=== PATIENT | female | born 1935 | race Caucasian/White ===

== ENCOUNTER 2016-09-15 09:48 | Inpatient (IN) | payer OTHER ==
[~2016-09-15] VITALS: Ht 160 cm; Wt 49.0 kg
[2016-09-15 10:07] VITALS: BP 150/70
[2016-09-15 10:19] LABS: BASO % 0.2 % (0.0-1.0); EOS % 0.2 % (1.0-4.0); HEMATOCRIT 33.1 % (37.0-47.0); HEMOGLOBIN 11.2 g/dl (12.0-16.0); LYMPH # 0.7 10*3/uL (1.3-4.4); LYMPH % 8.8 % (27.0-41.0); MEAN CELL VOLUME 94.3 fl (81.0-99.0); MEAN CORPUSCULAR HGB 31.9 pg (27.0-31.0); MEAN CORPUSCULAR HGB CONC 33.8 g/dl (33.0-37.0); MEAN PLATELET VOLUME 9.3 fl (9.6-12.3); MONO # 0.5 10*3/uL (0.1-1.0); MONO % 6.5 % (3.0-9.0); NEUT # 6.9 10*3/uL (2.3-7.9); NEUT % 83.9 % (47.0-73.0); PLATELET COUNT AUTOMATED 168 10*3/uL (130-400); RED BLOOD COUNT 3.51 10*6/uL (4.10-5.10); RED CELL DISTRI WIDTH 12.9 % (0-14.5); WHITE BLOOD COUNT 8.3 10*3/uL (4.8-10.8)
[2016-09-15] MEDS ORDERED: ASPIRIN CHILDRE81 MG PO (10:21)
[2016-09-15] MEDS ORDERED: VITAMINS A-D-E1 EACH PO (10:21)
[2016-09-15 10:37] LABS: ALBUMIN 2.8 gm/dl (3.1-4.5); ALKALINE PHOSPHATASE 113 U/L (45-117); BILIRUBIN, TOTAL 0.4 mg/dl (0.2-1.0); BUN 37 mg/dl (7-24); CARBON DIOXIDE 25 mmol/L (21-32); CHLORIDE 101 mmol/L (98-107); EST GLOM FILT AFRICAN AMERICAN 46 ml/min; GLUCOSE 148 mg/dL (65-99); POTASSIUM 3.3 mmol/L (3.5-5.1); SGOT/AST 58 IU/L (3-35); SGPT/ALT 51 U/L (12-78); SODIUM 134 mmol/L (136-145); TROPONIN I < 0.015 ng/ml (<0.045)
[2016-09-15 11:00] VITALS: BP 152/70
[2016-09-15 11:00] LABS: BILIRUBIN 2+ (NEGATIVE); BLOOD 3+ (NEGATIVE); CLARITY SL CLOUDY (CLEAR); COLOR YELLOW (YELLOW); GLUCOSE NEGATIVE (NEGATIVE); KETONE 1+ (NEGATIVE); LEUKO ESTERASE 3+ (NEGATIVE); NITRITE NEGATIVE (NEGATIVE); PH 5.5 (5.0-9.0); PROTEIN 2+ (NEGATIVE); SPECIFIC GRAVITY 1.025 (1.005-1.030)
[2016-09-15 11:14] LABS: BACTERIA 2+; MUCOUS 1+; URINE REFLEX COMMENT YES (NO); WBC 31-40 wbc/hpf (0-5)
[2016-09-15 11:46] VITALS: BP 163/70
[2016-09-15 12:00] VITALS: BP 162/78
[2016-09-15 12:17] LABS: CKMB 1.7 ng/ml (0.5-3.6)
[2016-09-15 16:00] VITALS: BP 114/79
[2016-09-15 20:00] VITALS: BP 133/95
[2016-09-16] VITALS: BP 112/57
[2016-09-16 00:39] LABS: CKMB 2.4 ng/ml (0.5-3.6)
[2016-09-16 06:01] LABS: BASO % 0.3 % (0.0-1.0); EOS % 0.2 % (1.0-4.0); HEMATOCRIT 27.7 % (37.0-47.0); HEMOGLOBIN 9.3 g/dl (12.0-16.0); IG # 0.1 10*3/uL (0.0-0.1); LYMPH # 1.6 10*3/uL (1.3-4.4); LYMPH % 14.4 % (27.0-41.0); MEAN CELL VOLUME 93.6 fl (81.0-99.0); MEAN CORPUSCULAR HGB 31.4 pg (27.0-31.0); MEAN CORPUSCULAR HGB CONC 33.6 g/dl (33.0-37.0); MEAN PLATELET VOLUME 9.5 fl (9.6-12.3); MONO # 0.4 10*3/uL (0.1-1.0); MONO % 3.6 % (3.0-9.0); NEUT # 9.1 10*3/uL (2.3-7.9); PLATELET COUNT AUTOMATED 159 10*3/uL (130-400); RED BLOOD COUNT 2.96 10*6/uL (4.10-5.10); RED CELL DISTRI WIDTH 13.1 % (0-14.5); WHITE BLOOD COUNT 11.2 10*3/uL (4.8-10.8)
[2016-09-16 06:30] LABS: CARBON DIOXIDE 24 mmol/L (21-32); CHLORIDE 112 mmol/L (98-107); EST GLOM FILT AFRICAN AMERICAN > 60 ml/min; FREE T4 1.25 ng/dl (0.76-1.46); GLUCOSE 103 mg/dL (65-99); MAGNESIUM 1.8 mg/dL (1.5-2.1); PHOSPHOROUS 2.4 mg/dL (2.5-4.9); SODIUM 145 mmol/L (136-145)
[2016-09-16 06:34] LABS: PROTHROMBIN TIME 10.4 SECONDS (9.0-12.4)
[2016-09-16 06:41] LABS: BUN 22 mg/dl (7-24)
[2016-09-16 06:56] LABS: HEMOGLOBIN A1c 5.6 % (4.8-5.6)
[2016-09-16 07:59] LABS: VITAMIN D, 25-HYDROXY 30.8 ng/mL (30-100)
[2016-09-16 08:00] VITALS: BP 122/53
[2016-09-16 08:02] LABS: FOLIC ACID > 24.00 ng/mL (>5.38)
== END 2016-09-16 14:32 | disposition home or self-care (01) | DRG 682 ==
LOC: ED 09:48 → EDHOLD 11:23 → 5E 11:36
PROVIDERS: Internal Medicine; Nurse Practitioner Family
DX: N17.0 Acute kidney failure with tubular necrosis (principal); E43 Unspecified severe protein-calorie malnutrition; N39.0 Urinary tract infection, site not specified; D64.9 Anemia, unspecified; E87.1 Hypo-osmolality and hyponatremia; Z68.1 Body mass index [BMI] 19.9 or less, adult; N18.3 Chronic kidney disease, stage 3 (moderate); R31.9 Hematuria, unspecified; Z83.3 Family history of diabetes mellitus; E87.6 Hypokalemia; R74.0 Nonspecific elevation of levels of transaminase and lactic acid dehydrogenase [LDH]

== ENCOUNTER → 2016-09-25 | Outpatient (CLI) | payer MEDICARE ==
[~2016-09-25] MED LIST: ASPIRIN CHILDRE81 MG PO; VITAMINS A-D-E1 EACH PO
[2016-09-25 07:24] LABS: BILIRUBIN NEGATIVE (NEGATIVE); BLOOD 2+ (NEGATIVE); CLARITY SL CLOUDY (CLEAR); COLOR YELLOW (YELLOW); GLUCOSE NEGATIVE (NEGATIVE); KETONE NEGATIVE (NEGATIVE); LEUKO ESTERASE 2+ (NEGATIVE); NITRITE NEGATIVE (NEGATIVE); PROTEIN NEGATIVE (NEGATIVE); UROBILINOGEN 0.2 E.U./dl (0.2-1.0)
[2016-09-25 07:33] LABS: BACTERIA 1+
[2016-09-25 07:51] LABS: ALBUMIN 3.4 gm/dl (3.1-4.5); BILIRUBIN, TOTAL 0.4 mg/dl (0.2-1.0); TOTAL PROTEIN 7.9 gm/dL (6.4-8.2)
[2016-09-26 05:08] LABS: HEPATITIS C VIRUS ANTIBODY <0.1 s/co (0.0-0.9)
== END | disposition home or self-care (01) ==
LOC: US 06:00 → LAB 06:01
PROVIDERS: Internal Medicine
DX: N18.3 Chronic kidney disease, stage 3 (moderate) (principal); R74.0 Nonspecific elevation of levels of transaminase and lactic acid dehydrogenase [LDH]; D64.9 Anemia, unspecified; R79.89 Other specified abnormal findings of blood chemistry; K76.89 Other specified diseases of liver; N94.89 Other specified conditions associated with female genital organs and menstrual cycle; J42 Unspecified chronic bronchitis

== ENCOUNTER → 2016-09-26 | Outpatient (CLI) | payer MEDICARE ==
[2016-09-26 11:48] LABS: URINE TOTAL PROTEIN CONC 6.6 mg/dL (<11.9)
[2016-09-26 11:49] LABS: URINE CREATININE TIMED 556.6 mg/24HRS (600-1800); URINE SODIUM TIMED 80.5 mmol/24H (40.0-220)
== END | disposition home or self-care (01) ==
LOC: LAB 11:06
PROVIDERS: Internal Medicine
DX: N18.3 Chronic kidney disease, stage 3 (moderate) (principal); R74.0 Nonspecific elevation of levels of transaminase and lactic acid dehydrogenase [LDH]; D63.1 Anemia in chronic kidney disease

== ENCOUNTER → 2016-10-10 | Outpatient (CLI) | payer MEDICARE | LOC: US 13:44 | DX: R31.29 Other microscopic hematuria (principal) ==

== ENCOUNTER 2017-01-05 08:43 | Inpatient (IN) | payer MEDICARE ==
[~2017-01-05] VITALS: Ht 160 cm; Wt 50.0 kg
--- NOTE | ~2017-01-05 | PR ---
[place], [place] PROGRESS NOTE NAME: HUBERT SANTILLAN [facility] #: [id number] UNIT #: [id number] ROOM: [facility] DOCTOR: MARYAM CEVALLOS MD BIRTHDATE: [birth year] DOS: 01/08/2017 SUBJECTIVE: The patient was seen at her bedside in the intensive care unit today, 01/08/2017, for followup of her newly documented atrial fibrillation. She is an 81-year-old woman who lives with her at home. She is a poor historian and may have some dementia. She came in to the hospital on 01/05/2017 with a chief complaint of increasing weakness, fatigue and confusion. In the Emergency Room, she was in sinus rhythm, but developed atrial fibrillation with a rapid ventricular response on 01/07/2017. She was transferred to the intensive care unit, placed on a diltiazem drip and converted spontaneously back to sinus rhythm the same day. We were asked to comment on her management and evaluation. Currently, the patient is very comfortable. She denies dyspnea or palpitations. She does not recall having her heart out of rhythm. PAST HISTORY: Includes: 1. Hypertension. 2. Chronic kidney disease. 3. Protein calorie malnutrition. PHYSICAL EXAMINATION: GENERAL: Today, she is an elderly white female who looks fatigued and frail. VITAL SIGNS: Pulse is 78 and regular, blood pressure is 131/54. She is afebrile. NECK: Supple. She has no jugular distention. Carotids are full. I heard no bruits. LUNGS: Respirations are unlabored. Her chest is clear to auscultation and percussion. She has no presacral edema. HEART: Has a regular rhythm. She has a fourth heart sound, but no third heart sound or murmur. The PMI is not displaced. ABDOMEN: Benign. EXTREMITIES: Showed no edema. There were no palpable cords or tenderness. Pedal pulses are palpable in the feet. Her monitor today does show sinus rhythm again. TSH is normal. Hemoglobin today is 11.4 with a white count of 7300. Sodium yesterday was 133 with a potassium of 3.2, BUN 23, creatinine 1.08, estimated GFR 48. IMPRESSION: 1. Newly documented atrial fibrillation, now back in sinus rhythm. 2. CHADS-VASc score of 4 indicating a high risk for stroke without anticoagulation. 3. Hypertension. 4. Malnutrition. 5. Possible dementia. [place], [place] PROGRESS NOTE NAME: HUBERT SANTILLAN [facility] #: [id number] UNIT #: [id number] ROOM: [facility] DOCTOR: MARYAM CEVALLOS MD BIRTHDATE: [birth year] PLAN: The patient is a very high risk for stroke and therefore, we will start her on Xarelto. We will stop her aspirin as we do this. We will monitor her CBC. Her potassium will be replaced. Further recommendations will depend upon her course in the hospital and echocardiogram results. I thank Dr. Weaver for asking our advice regarding her management of this patient. MARYAM CEVALLOS MD CM:PNTRANS [id number] MARYAM CEVALLOS MD 01/08/17 2248 interface
--- NOTE | ~2017-01-05 | PR ---
[place], [place] PROGRESS NOTE NAME: HUBERT SANTILLAN [facility] #: [id number] UNIT #: [id number] ROOM: [facility] DOCTOR: MARYAM CEVALLOS MD BIRTHDATE: [birth year] DOS: 01/09/2017 SUBJECTIVE: The patient was seen at her bedside in the intensive care unit today on 01/09/2017 for followup of her paroxysmal atrial fibrillation. When I saw her yesterday, she was in sinus rhythm, but has converted back to atrial fibrillation with a rapid ventricular response today. She denies that she feels any palpitations, lightheadedness or chest discomfort. She initially was admitted on 01/05/2017 with a chief complaint of increasing weakness, fatigue and confusion. In the emergency room, she was in sinus rhythm, but developed atrial fibrillation with a rapid ventricular response. On 01/07/2017, she converted spontaneously to sinus rhythm, but has now converted back to atrial fibrillation with rapid ventricular response. She does have a history of hypertension, chronic renal insufficiency and malnutrition. In addition, she appears to have an element of dementia. PHYSICAL EXAMINATION: GENERAL: She is an elderly white female who is awake and alert. VITAL SIGNS: Pulse is 130 and irregularly irregular, blood pressure is 165/77. She is afebrile. NECK: Supple. She has no jugular distention. Carotids are full. LUNGS: Respirations are unlabored. Her chest is clear. HEART: Has an irregularly irregular rhythm. She has no murmurs or gallops. ABDOMEN: Soft and normoactive. EXTREMITIES: Showed no edema. Echocardiogram was done on 01/08/2017 and showed normal left ventricular size, wall thickness, regional wall motion and systolic function with normal diastolic function for the patient's age. The aortic valve was sclerotic, but opened well with mild aortic insufficiency. IMPRESSION: 1. Newly documented atrial fibrillation, which appears to be paroxysmal. 2. CHADS-VASc score of 4 indicating high risk for stroke without anticoagulation. 3. Hypertension. 4. Malnutrition. 5. Probable dementia. PLAN: The patient is going quite fast now and therefore, we will start her back on IV diltiazem. If this continues to be a problem, we may consider starting either Multaq or amiodarone. Given her normal left ventricular function, sotalol may also be a reasonable option. I thank Dr. Weaver for asking our advice regarding her care. [place], [place] PROGRESS NOTE NAME: HUBERT SANTILLAN UNIT #: [id number] ROOM: [facility] DOCTOR: MARYAM CEVALLOS MD BIRTHDATE: [birth year] MARYAM CEVALLOS MD CM:PNTRANS [id number] MARYAM CEVALLOS MD 01/10/17 0324 interface
--- NOTE | ~2017-01-05 | CON ---
[place], [place] REPORT OF CONSULTATION NAME: HUBERT SANTILLAN UNIT #: [id number] ROOM: [facility] DOCTOR: VIRGINIE ROJAS BIRTHDATE: [birth year] DOS: 01/10/2017 HISTORY OF PRESENT ILLNESS: The patient is an 81-year-old female who is brought in for increased weakness, fatigue and confusion over the last couple of days. She was admitted to the hospital on 01/05/2017. The patient's stated that her appetite and food intake had decreased over the past few days and the family was worried she had a UTI despite urine cultures being negative. Met with the patient who was unable to identify where she was or the date or time. She thought she was in her first home and that there was a new TV in her home and asked who had bought it for her. She also thought the nurse was her relative, Minda. She was aware of herself, but was not oriented to any ____. This is reported as an acute change. She was unable to provide any history as she was unable to answer basic questions. PAST MEDICAL HISTORY: Chronic kidney disease stage 3, fatigue, hyperkalemia, hypernatremia, loss of appetite, normocytic anemia, protein-calorie malnutrition severe and transaminitis, UTI, acute kidney injury, dehydration, hyperkalemia, malnutrition. The patient was unable to provide much history other than her name again. She is not alert and oriented at this time. I spoke with Dr. Shepherd through nursing who is going to order a CT of the head. I will be interested to see the results of this as well as repeat urine cultures. DIAGNOSIS: Delirium, not otherwise specified. RECOMMENDATIONS: Continue to monitor the patient regarding mental status changes. Await the results of CT of the head along with the urine cultures as well as the patient reaction to medications being changed. The patient could possibly have medication-induced delirium versus hospital-acquired delirium. Thank you for the consult. KANG Peter CM:CONSTR:REPORT OF CONSULTATION 1356 01/11/17 0339 interface
--- NOTE | ~2017-01-05 | EKG ---
[place], [place] ELECTROCARDIOGRAM REPORT NAME: HUBERT SANTILLAN UNIT #: [id number] ROOM: [facility] DOCTOR: RAGHAV ESCALANTE MD BIRTHDATE: [birth year] DOS: 01/05/2017 TIME: 10:07:26. RATE AND RHYTHM: Normal sinus rhythm at 88 beats per minute. [place] interval 119 milliseconds, QRS duration 65 milliseconds. Corrected QT interval is 435 milliseconds, QRS axis is 4. IMPRESSION: 1. Sinus rhythm. 2. RSR in V1 and V2, probable normal variant. 3. Minimal ST elevation in anterior leads. IMPRESSION: This is borderline EKG. RAGHAV ESCALANTE MD CM:EKGRPT:ELECTROCARDIOGRAM REPORT [id number] 1003 RAGHAV ESCALANTE MD
--- NOTE | ~2017-01-05 | PR ---
[place], [place] PROGRESS NOTE NAME: HUBERT SANTILLAN UNIT #: [id number] ROOM: [facility] DOCTOR: HERMANN TALAVERA MD BIRTHDATE: [birth year] DOS: 01/13/2017 CARDIOLOGY FOLLOWUP VISIT NOTE REASON FOR VISIT: The patient has atrial fibrillation and hypertension. SUBJECTIVE: The patient is feeling better. Denies any chest pain, palpitation or dizziness. No PND, no orthopnea, no fever and chills. RHYTHM STRIPS: The patient is in sinus rhythm. REVIEW OF SYSTEMS: Review of 8 systems negative except as mentioned above. MEDICATIONS AND ALLERGIES: Reviewed. PHYSICAL EXAMINATION: VITAL SIGNS: Reviewed. GENERAL: The patient is alert, oriented, no acute distress. HEAD AND NECK: Pupils are round and equal. No jaundice. THROAT: Tongue was moist and pharynx was clear. NECK: Supple, no distended , no carotid bruit. CHEST: Symmetrical, nontender. LUNGS: A few scattered rhonchi, but good air entry bilaterally. HEART: Regular rhythm. No S3, no palpable thrills. ABDOMEN: Benign, nontender. Bowel sounds normal. SKIN: Warm and dry. No cyanosis, no clubbing. NEUROLOGIC: The patient is alert and oriented. No focal neurologic deficit. RECTAL: Deferred. GENITOURINARY: Deferred. IMPRESSION: 1. Paroxysmal atrial fibrillation. 2. Hypertension. RECOMMENDATIONS: 1. Continue current medication. 2. Today EKG pending at the time of my examination for her QT interval. 3. No further cardiac testing and the patient is DNRCC. 4. Discussed with her family who is at bedside. 5. Possible discharge on Sunday to a [facility]. [place], [place] PROGRESS NOTE NAME: HUBERT SANTILLAN UNIT #: [id number] ROOM: [facility] DOCTOR: HERMANN TALAVERA MD BIRTHDATE: [birth year] HERMANN TALAVERA MD CM:PNTRANS [id number] HERMANN TALAVERA MD 01/13/17 1682 interface
--- NOTE | ~2017-01-05 | PR ---
[place], [place] PROGRESS NOTE [facility] [id number] UNIT #: [id number] ROOM: 524 DOCTOR: SHRUTHI MARTINEZ MD BIRTHDATE: [birth year] DOS: SUBJECTIVE: The patient is feeling much better. She is conscious, alert and oriented. Her atrial fibrillation is under control. The patient is able to eat better. She is conscious, alert and oriented. She does not seem to have any dehydration at present. CBC showed white count 6,200, hemoglobin 11.7, hematocrit 33.8. Basic metabolic profile showed creatinine of 1.06, GFR 50, other values are fairly normal. OBJECTIVE: VITAL SIGNS: Her blood pressure is 147/73, pulse is 88, respirations 16, temperature 97.9. CHEST: Clear. HEART: Irregular. ABDOMEN: Soft. [facility] SHRUTHI MARTINEZ MD CM:PNTRANS [id number] SHRUTHI MARTINEZ MD 01/14/17 2316 interface
--- NOTE | ~2017-01-05 | PR ---
[place], [place] PROGRESS NOTE NAME: HUBERT SANTILLAN UNIT #: [id number] ROOM: [facility] DOCTOR: HERMANN TALAVERA MD BIRTHDATE: [birth year] DOS: 01/14/2017 REASON FOR VISIT: Atrial fibrillation. SUBJECTIVE: The patient is resting comfortably. Denies any chest pain or shortness of breath. She is anticipating discharge. No fever, no chills. She is anticipating discharge after swallowing study. REVIEW OF SYSTEMS: Review of the 8 systems negative except as mentioned above. RHYTHM STRIPS: The patient in sinus rhythm. PHYSICAL EXAMINATION: VITAL SIGNS: Reviewed. GENERAL: Alert, comfortable, in no acute distress. HEENT: Pupils are round and equal. No jaundice. NECK: Supple, no distended neck veins, no carotid bruit. CHEST: Symmetrical, nontender. LUNGS: Clear to auscultation bilaterally. HEART: Regular rhythm, no S3, no palpable thrills. Grade 1/6 systolic murmur. ABDOMEN: Benign. Bowel sounds normal. EXTREMITIES: Showed no edema. Distal pulses are palpable. DIAGNOSTIC TESTS: Review of the diagnostic test, EKG from yesterday showed sinus rhythm with a QTc 496 milliseconds which is increased from 468 on 01/12. IMPRESSION: 1. Paroxysmal atrial fibrillation, sinus rhythm, decrease the sotalol dose to half due to her increased QT interval. 2. Hypertension, stable. 3. Dysphagia. The patient is waiting for swallowing study tomorrow. 4. Cardiology will see as needed and she can be discharged home after her swallowing study on Sunday. 5. There is no family at bedside at the time of my examination. [place], [place] PROGRESS NOTE NAME: HUBERT SANTILLAN UNIT #: [id number] ROOM: [facility] DOCTOR: HERMANN TALAVERA MD BIRTHDATE: [birth year] HERMANN TALAVERA MD CM:PNTRANS [id number] 1335 HERMANN TALAVERA MD 01/14/17 1333 interface
--- NOTE | ~2017-01-05 | CON ---
[place], [place] REPORT OF CONSULTATION NAME: HUBERT SANTILLAN UNIT #: [id number] ROOM: [facility] DOCTOR: CELSA UMANZOR MD BIRTHDATE: [birth year] DOS: REQUESTING PHYSICIAN: Dr. Tk Weaver REASON FOR CONSULTATION: Atrial fibrillation. ASSESSMENT: 1. Current presentation with shortness of breath and weakness. 2. Evidence of atrial fibrillation with significant rapid ventricular response, heart rates in the 180s. 3. The patient is a very poor historian. 4. Normal white count with left shift. 5. Hematuria. 6. Unknown level of lipid. 7. Very limited functional capacity. PLAN: 1. Cycle cardiac enzymes. 2. Check thyroid function test. 3. Sed rate, CRP along with D-dimer. 4. ABG. 5. Echocardiogram in a.m. 6. Cardizem drip. 7. Lopressor 25 mg q. 6 hours. 8. Digoxin 0.5 mg IV times once. 9. Lovenox 1 mg/kg subcutaneous once. 10. Blood cultures/UA. HISTORY AND PHYSICAL: The patient is a pleasant 81-year-old female, unknown to our practice, was referred by Dr. Weaver for evaluation of new onset atrial fibrillation that appears to be completely asymptomatic. The patient was brought into the hospital by her because of her weakness, shortness of breath that has going for the past 5 days. The patient is a very poor historian. She has been confused and quite forgetful. The patient does know that she had been short of breath though and tired, but denies any chest pain, chest pressure, heaviness or tightness. No jaw pain. No left arm pain. No back pain. Prior to this presentation, the patient denies any symptomatic palpitation or any associated dizziness, lightheadedness or near syncope. Decreased appetite has been reported. The patient appears to be almost cachectic. No reported fever, chills or night sweats. No cough. No dysuria. No PND, orthopnea or pedal edema. The patient has very limited functional capacity. She lives at home with her . PAST MEDICAL HISTORY: As detailed in my assessment. SOCIAL HISTORY: The patient denies any current tobacco, alcohol or illicit drug abuse. FAMILY HISTORY: Not applicable in view of patient's age. [place], [place] REPORT OF CONSULTATION NAME: HUBERT SANTILLAN UNIT #: [id number] ROOM: [facility] DOCTOR: CELSA UMANZOR MD BIRTHDATE: [birth year] CURRENT MEDICATIONS: Cardizem drip, lisinopril, hydrochlorothiazide, aspirin, Flexeril. ALLERGIES: The patient has no known drug allergies. REVIEW OF SYSTEMS: The patient currently denies any headache, diplopia or blurry vision. No fever. No chills. No night sweats. No abdominal pain. No bright red blood per rectum. No tarry stools. Admits to joint pain and muscular pain. No anxiety. No depression. No polyuria. No polydipsia. No skin rash. Review of all other systems has been negative. PHYSICAL EXAMINATION: GENERAL: The patient is alert, oriented x3, quite pleasant, sitting up in bed, in no apparent distress. VITAL SIGNS: Blood pressure 125/55, heart rate 172, respiratory rate of 20, temperature 98.2, T-max is 99.9.. HEENT: Extraocular muscles intact. Pupils equal, round, reactive to light. Conjunctivae, mild pallor. Throat, no petechiae. NECK: Good upstroke. Unable to appreciate any bruit. No lymphadenopathy. No thyromegaly. HEART: S1, S2 with holosystolic murmur at the left sternal border. No rub. No retrosternal heave. CHEST AND BACK: No deformities. LUNGS: Clear to auscultation. Slight decrease in air movement. No wheezing. No rales. ABDOMEN: Soft, nontender, present bowel sounds. No masses. No bruits. LOWER EXTREMITIES: There is no edema, with faint distal pulses. NEUROLOGIC: Grossly nonfocal. SKIN: No significant rash. DIAGNOSTIC DATA: Electrocardiogram showing atrial fibrillation with fast ventricular response, heart rate 172. There is poor R-wave progression, nonspecific ST changes. LABORATORY DATA: White count 7.3, hemoglobin 11.4, initially 13.2 (after 2 liters of saline), platelets 142,000, neutrophils 87%. Potassium 3.2, creatinine 1.08, GFR 48, BUN 23, albumin 2.5, protein 6.2. TSH 1.9, T4 1.6. CELSA UMANZOR MD CM:CONSTR:REPORT OF CONSULTATION 1159 01/07/17 1224 interface
--- NOTE | ~2017-01-05 | EKG ---
[place], [place] ELECTROCARDIOGRAM REPORT NAME: HUBERT SANTILLAN UNIT #: [id number] ROOM: [facility] DOCTOR: SADAF TY,HERMANN BIRTHDATE: [birth year] DOS: 01/14/2017 TIME: 9:49 a.m. IMPRESSION: 1. Sinus rhythm. 2. Normal RI interval. 3. Borderline prolonged QTC at 480 milliseconds. HERMANN TALAVERA MD CM:EKGRPT:ELECTROCARDIOGRAM REPORT 1025 1251 HERMANN TALAVERA MD
--- NOTE | ~2017-01-05 | CON ---
[place], [place] REPORT OF CONSULTATION NAME: HUBERT SANTILLAN UNIT #: [id number] ROOM: [facility] DOCTOR: OSCAR PAGE MD BIRTHDATE: [birth year] DOS: 01/12/2017 I have been asked for placement of PEG tube since she is not eating. She is having severe dementia. She cannot take her medication and the family is debating and deciding about proceeding with a PEG tube or not. LABORATORY DATA: Labs and records have been reviewed. Her serum ammonia level is less than 10. Electrolytes are balanced. Potassium of 3.3 has been addressed with potassium supplementation. CBC: H and H of 10 and 30, platelets of 285. Urine culture, no bacteria. PAST MEDICAL HISTORY: Anemia, protein calorie malnutrition, renal insufficiency, weight loss, hyperkalemia, dehydration. PAST SURGICAL HISTORY: Cholecystectomy. SOCIAL HISTORY: Nonsmoker, social alcohol consumer in the past. FAMILY HISTORY: Noncontributory. ALLERGIES: To no known medications. MEDICATIONS: Medication list has been reviewed. The patient has been on aspirin and Xarelto. REVIEW OF SYSTEMS: In general, cannot be obtained from her due to the cognitive incapability and advanced dementia. PHYSICAL EXAMINATION: GENERAL: Reveals a very frail patient, alert. HEENT: Head normocephalic, nontraumatic. MOUTH: Clear. No ____ ulceration. No thrush. NECK: Supple, no thyromegaly, no cervical lymphadenopathy. CHEST: Symmetric anatomy, equal expansion. No wheeze, no rhonchi. HEART: Normal sinus rhythm, no gallop, no murmur. ABDOMEN: Soft. No hepato-organomegaly. Bowel sounds present. No pulsatile mass. EXTREMITIES: No cyanosis, no pedal edema. NEUROLOGIC: Alert and disoriented. LABORATORY DATA: Reviewed. Records reviewed. PLAN AND DISCUSSION: I have spoken to the family member at the bedside; however, she defers the final decision for consent for PEG tube placement to her who is not available at this time. ____ has been established to see if and when they decided the patient to have a PEG tube. This is going to be organized on such a time. We are going to make sure that she is off the aspirin and Xarelto before we can proceed with PEG tube placement. Otherwise, if they decided to no PEG, I would advise at least to [place], [place] REPORT OF CONSULTATION NAME: HUBERT SANTILLAN UNIT #: [id number] ROOM: [facility] DOCTOR: OSCAR PAGE MD BIRTHDATE: [birth year] proceed with NG tube Dobbhoff tube placement to assure that we have access to the stomach. Other adjunctive diagnoses as outlined in the paragraph of past medical and surgical history. Workup and stabilization and IV hydration. OSCAR PAGE MD CM:CONSTR:REPORT OF CONSULTATION 1642 01/13/17 0714 interface
--- NOTE | ~2017-01-05 | CON ---
[place], [place] REPORT OF CONSULTATION NAME: HUBERT SANTILLAN UNIT #: [id number] ROOM: [facility] DOCTOR: MAXIMUS OLIVARES MD BIRTHDATE: [birth year] DOS: 01/12/2017 CHIEF COMPLAINT: "I think you have been at my neck of the bar[place] before, haven't you." HISTORY OF PRESENT ILLNESS: This is an 81-year-old white female who was admitted through the emergency room with increasing weakness, fatigue and confusion over the last several days prior to admission. The patient, per the who accompanied her, has not been eating or taking in fluids for some time now and the family is worried that she might have a UTI causing her to be increasingly confused. The patient now has been in ICU for several days. Staff here note that she is increasingly confused and she sundowns. She is experiencing both symptoms of depression with poor sleep and appetite, anergia, anhedonia, hopeless, helpless feelings as well as increased psychotic symptoms. The patient has repeatedly stated that she has seen aliens in her room and has been very grossly delusional. Much of this is worsened when she sundowns in the evening and becomes increasingly agitated. PAST MEDICAL HISTORY: Remarkable for dehydration, malnutrition, chronic kidney disease stage 3. MENTAL STATUS: The patient is alert and oriented to self only. She does not seem to realize she is in the hospital and she states that she has been here just overnight. Her responses tended to be short and simple, at times evasive. She does appear somewhat depressed rather flat. She was lying in bed, next to her was a full breakfast tray that was untouched. This morning, she was pleasant and cooperative and offered no delusional statements. Memory is very poor, especially for short term events. DIAGNOSIS: Major depression, recurrent with psychotic features. PLAN: I will go ahead and check a vitamin B12, vitamin D level and a serum ammonia to continue to rule out organic factors. I will stop her Megace only because she is bedridden at the time and I worry about the risk of DVT or PE. Instead, I will start her on Remeron which is an antidepressant that will stimulate appetite and also aid sleep hoping to also decrease some of her sundowning. I will also simultaneously start Exelon patch 4.6 mg in the morning to attempt to impact positively on ADLs, behavior and cognition. Should you require further intervention, please feel free to call me at any time. [place], [place] REPORT OF CONSULTATION NAME: HUBERT SANTILLAN Emily UNIT #: [id number] ROOM: [facility] DOCTOR: MAXIMUS OLIVARES MD BIRTHDATE: [birth year] MAXIMUS OLIVARES MD CM:CONSTR:REPORT OF CONSULTATION 0939 01/13/17 0450 interface
--- NOTE | ~2017-01-05 | EKG ---
[place], [place] ELECTROCARDIOGRAM REPORT NAME: HUBERT SANTILLAN UNIT #: [id number] ROOM: [facility] DOCTOR: SADAF TY,HERMANN BIRTHDATE: [birth year] DOS: 01/13/2017 TIME: 9:57 a.m. IMPRESSION: 1. Sinus rhythm. 2. Left ventricular hypertrophy. 3. Prolonged QT interval with QT 463, QTC 496 [address]. [address] elevation in the anterior leads. HERMANN TALAVERA MD CM:EKGRPT:ELECTROCARDIOGRAM REPORT [id number] HERMANN TALAVERA MD
--- NOTE | ~2017-01-05 | PR ---
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 The patient has been seen by Dr. Rincon, psychiatrist. He advised to check patient's B12 level, vitamin D level, serum ammonia and advised to stop her Megace, improve with dehydration. Her basic metabolic profile is fairly normal and her CBC showed some hypochromic anemia, otherwise normal. The patient has also been seen by Dr. Lowery and he has advised as the patient is not able to eat, she will need PEG placement and he has cleared her to be taken for PEG placement, which will be done possibly on Sunday. Her blood pressure is 166/89, pulse 78, respirations 20, temperature 97.8. The patient is still somewhat confused. SHRUTHI MARTINEZ MD CM:PNTRANS [id number] SHRUTHI MARTINEZ MD 01/15/17 1101 interface
--- NOTE | ~2017-01-05 | PR ---
[place], [place] PROGRESS NOTE NAME: HUBERT SANTILLAN [facility] #: [id number] UNIT #: [id number] ROOM: 420 DOCTOR: SHRUTHI MARTINEZ MD BIRTHDATE: [birth year] DOS: SUBJECTIVE: The patient has been admitted to the hospital with confused mental status and with hypertension, not able to eat much and was getting dehydration and slowly getting down and she came to Emergency Department a couple of days before, also was given IV fluids, felt better, but sent home, but then it looks like she has continued not getting better and came to Emergency Department again from where she was admitted to the hospital. The patient has a past history of chronic kidney disease, fatigue, hypokalemia, hyponatremia, loss of appetite, normocytic anemia, protein-calorie malnutrition, and UTI. Last night, the patient had become very confused and was not able to be controlled, needed medication to get under control, but now she is feeling much better. She is conscious, alert. CT of the abdomen did not show any acute problems. She had some cholelithiasis without any evidence of cholecystitis. She has also nonspecific colitis. LABORATORY DATA: Her basic metabolic profile today showed BUN 26, creatinine 1.05, GFR 50, calcium 8.2, phosphorus 1.8, and albumin 2.3. Other values are normal. Urine culture did not show any bacteria. OBJECTIVE: VITAL SIGNS: Blood pressure is 154/61, pulse 54, respirations 20, temperature 99.4. CHEST: Clear. HEART: Regular. ABDOMEN: Soft. No tenderness. SHRUTHI MARTINEZ MD CM:PNTRANS [id number] SHRUTHI MARTINEZ MD 01/07/17 0445 interface
--- NOTE | ~2017-01-05 | CON ---
[place], [place] REPORT OF CONSULTATION NAME: HUBERT SANTILLAN UNIT #: [id number] ROOM: [facility] DOCTOR: OSCAR PAGE MD BIRTHDATE: [birth year] DOS: HISTORY OF PRESENT ILLNESS: An 81-year-old patient who has presented with chief complaint of abdominal pain, initially; however, now concentrated that her left hip is bothering her. She was coincidentally found to have suspected choledocholithiasis and she is in ICU for atrial fibrillation and conversion of the above. I have been asked for assessment of the patient regarding CT scan report of choledocholithiasis. Hepatic function test assessed bilirubin, GOT, GPT, alkaline phosphatase all appear to be within normal limits and common duct appears to be 5 mm. CBC differential white blood cells 6.3, H and H of 10 and 30. Blood cultures are no growth. CTA of the chest, no pulmonary pathology. D-dimer is 4.5. Comprehensive metabolic panel: Creatinine 1.03, potassium has been addressed. Liver function tests repeatedly normal. PAST MEDICAL HISTORY: Associated with chronic renal disease, protein calorie malnutrition, electrolyte imbalance that has been addressed. PAST SURGICAL HISTORY: No surgeries that she is aware of. SOCIAL HISTORY: Nonsmoker and social alcohol consumer. FAMILY HISTORY: Noncontributory except diabetes. ALLERGIES: To no known medications. MEDICATIONS: Medication at home includes aspirin, lisinopril, cyclobenzaprine, and prednisone. REVIEW OF SYSTEMS: HEENT: Denies double vision, blurred vision. RESPIRATORY: Denies acute shortness of breath. CARDIOVASCULAR: Denies acute chest pain, is convert to normal sinus rhythm. DIGESTIVE SYSTEM: No hematemesis, no hematochezia. Review of other systems was tender pain in the left hip. PHYSICAL EXAMINATION: VITAL SIGNS: Stable. HEENT: Head normocephalic, nontraumatic. Mouth and buccal mucosa benign. NECK: Supple, no thyromegaly, no cervical lymphadenopathy. CHEST: Symmetric anatomy, equal expansion. No wheeze. No rhonchi. HEART: Normal sinus rhythm at the present time. No gallop. No murmur. ABDOMEN: Soft. No hepato-organomegaly. Bowel sounds present. EXTREMITIES: No cyanosis, no pedal edema. NEUROLOGIC: Alert, oriented to time, place and person. IMPRESSION: Protein malnutrition, renal insufficiency, electrolyte imbalance, status post correction, coincidental finding of suspected choledocholithiasis without any nausea, vomiting, without any abnormalities on LFTs essentially, otherwise no pathology in CT scan of the abdomen, no intrahepatic ductal dilation. [place], [place] REPORT OF CONSULTATION NAME: HUBERT SANTILLAN UNIT #: [id number] ROOM: [facility] DOCTOR: OSCAR PAGE MD BIRTHDATE: [birth year] PLAN AND DISCUSSION: We are going to remain conservative. There is no need for interventional management or aggressive workup. Since all the clinical and laboratory values are signifying benign status and she has just converted to normal sinus rhythm, we will be conservative at this stage. Thank you very much indeed. OSCAR PAGE MD CM:CONSTR:REPORT OF CONSULTATION 1807 01/09/17 0437 interface
--- NOTE | ~2017-01-05 | PR ---
[place], [place] PROGRESS NOTE [id number] UNIT #: [id number] ROOM: [facility] DOCTOR: MICHELLE TY,SHRUTHI Herrera BIRTHDATE: [birth year] DOS: SUBJECTIVE: The patient has been admitted to hospital with confused mental status with hypertension, unable to eat and dehydration with renal failure, has been slowly improving. She is eating better. She is doing better, does not seem to be in any acute distress and she is slowly improving. Today, she is conscious, alert and oriented. Her urine culture and sensitivity did not grow any bacteria. OBJECTIVE: VITAL SIGNS: Blood pressure is 128/49, pulse 90, respirations 20, temperature 98. CHEST: Clear. HEART: Regular. ABDOMEN: Soft. SHRUTHI MARTINEZ MD CM:PNLAYLA [id number] SHRUTHI MARTINEZ MD 01/07/17 1100 interface
[~2017-01-05 08:43] MED LIST changes: +ZESTORETIC 10-1 EACH PO
[2017-01-05 08:55] VITALS: BP 105/63
[2017-01-05 09:25] LABS: HEMATOCRIT 38.6 % (37.0-47.0); HEMOGLOBIN 13.2 g/dl (12.0-16.0); MEAN CELL VOLUME 91.9 fl (81.0-99.0); MEAN CORPUSCULAR HGB 31.4 pg (27.0-31.0); MEAN CORPUSCULAR HGB CONC 34.2 g/dl (33.0-37.0); MEAN PLATELET VOLUME 9.4 fl (9.6-12.3); PLATELET COUNT AUTOMATED 142 10*3/uL (130-400)
[2017-01-05 09:34] LABS: ACT PARTIAL THROMBO TIME 22.3 SECONDS (20.8-31.5)
[2017-01-05 09:38] LABS: ALBUMIN 2.9 gm/dl (3.1-4.5); CREATININE 1.53 mg/dL (0.55-1.02); POTASSIUM 3.2 mmol/L (3.5-5.1); TOTAL PROTEIN 7.2 gm/dL (6.4-8.2)
[2017-01-05 09:43] LABS: PLATELET SUFFICIENCY NORMAL (NORMAL); TOTAL CELLS COUNTED 100 #CELLS
[2017-01-05 10:00] VITALS: BP 104/68
[2017-01-05 10:40] LABS: BILIRUBIN 1+ (NEGATIVE); BLOOD 3+ (NEGATIVE); CLARITY SL CLOUDY (CLEAR); COLOR YELLOW (YELLOW); GLUCOSE NEGATIVE (NEGATIVE); KETONE TRACE (NEGATIVE); LEUKO ESTERASE NEGATIVE (NEGATIVE); NITRITE NEGATIVE (NEGATIVE); SPECIFIC GRAVITY 1.025 (1.005-1.030); UROBILINOGEN 0.2 E.U./dl (0.2-1.0)
[2017-01-05 10:55] LABS: BACTERIA 2+; RBC 31-40 rbc/hpf (0-2)
[2017-01-05] MEDS ORDERED: CYCLOBENZAPRINE10 MG PO (11:39)
[2017-01-05 11:40] VITALS: BP 108/82
[2017-01-05] MEDS ORDERED: PREDNISONE10 MG PO (11:40)
--- NOTE | 2017-01-05 11:44 | NUR ---
HOME MEDICATIONS VERIFIED WITH PAHRMACIST AT [facility]
--- NOTE | 2017-01-05 11:46 | NUR ---
REPORT RECEIVED FROM ER
--- NOTE | 2017-01-05 12:00 | NUR ---
A 81, admitted to , under the services of RAGHAV Zuleta MD with a diagnosis of ACUTE KIDNEY INJURY, MALNUTRITION, DEHYDRATION. Chief complaint is WEAKNESS AND NOT EATING PER FAMILY. Patient arrived via stretcher from ER. Monitor applied. Initial assessment completed. Vital signs taken and recorded. RAGHAV ZULETA MD notified of admission to the unit. Orders received. See assessment for past medical history, medications and allergies. Patient and/or family oriented to unit. [facility] visitation policy reviewed. Clothing/patient valuable form completed. JOSE TINAJERO
[2017-01-05 12:08] VITALS: BP 132/58
--- NOTE | 2017-01-05 13:47 | NUR ---
DR WEINER (WHO IS WORKING WITH NEPHROLOGY THIS WEEK) IS AWARE OF CONSULT AND IN TO SEE PT AT THIS TIME.
[2017-01-05 16:00] VITALS: BP 156/48
[2017-01-05 20:00] VITALS: BP 151/64
--- NOTE | 2017-01-05 21:36 | NUR ---
SPOKE WITH DR. COHN FOR OKAY TO CONTINUE LISINOPRIL AND HYDROCHLORIATHIAZIDE. CONTINUED DIRECTED.
--- NOTE | 2017-01-05 21:36 | NUR ---
SPOKE WITH DR. ESCALANTE REGARDING HOME MEDICATIONS, ORDERED DIRECTED.
[2017-01-06] VITALS: BP 154/61
--- NOTE | 2017-01-06 05:55 | NUR ---
CALLED DR. REYNA AT THIS TIME, PATIENT MOVED FROM 403-2 TO 420 AFTER CLIMBING OUT OF BED. PATIENT VERY UNSTEADY. AFTER THE MOVE, PATIENT BECAME VERY DISGRUNTLED AND BEGAN SWINGING AT STAFF. PATIENT STATED SHE JUST WANTED TO GET OUTSIDE TO GET FRESH AIR, STATED THAT WE WERE USING PEOPLE. DR. REYNA ORDERED HALDOL 2.5MG IM. WILL MONITOR
[2017-01-06 06:28] LABS: ALBUMIN 2.3 gm/dl (3.1-4.5); BUN 26 mg/dl (7-24); CHLORIDE 104 mmol/L (98-107); CREATININE 1.05 mg/dL (0.55-1.02); PHOSPHOROUS 1.8 mg/dL (2.5-4.9); POTASSIUM 3.5 mmol/L (3.5-5.1); SODIUM 136 mmol/L (136-145)
[2017-01-06 08:00] VITALS: BP 129/57
--- NOTE | 2017-01-06 08:27 | NUR ---
DR MARTINEZ HERE AT THIS TIME INQUIRING WHEN PT'S LAST BM, UNSURE OF LAST BM. ORDER RECEIVED TO GIVE MOM, IF NO EFFECT GIVE FLEETS ENEMA.
--- NOTE | 2017-01-06 08:30 | NUR ---
DR MARTINEZ IN TO SEE PT AT THIS TIME, ENCOURAGING PT TO DRINK MORE FLUIDS.
--- NOTE | 2017-01-06 09:29 | NUR ---
MEDICATED WITH MOM PER ORDER. WILL MONITOR FOR EFFECTIVENESS. IF NO EFFECT FLEETS ENEMA TO BE GIVEN.
[2017-01-06 12:00] VITALS: BP 117/45
--- NOTE | 2017-01-06 14:00 | NUR ---
PT RESTING IN BED, NO DISTRESS NOTED, AT BEDSIDE. PT DENIES ANY COMPLAINTS, ENCOURAGED PT TO INCREASE ORAL INTAKE. ASKED PT IF SHE HAS HAD A BM YET, STATES SHE HASN'T YET, BUT WOULD LIKE TO WAIT A LITTLE LONGER BEFORE RECEIVING ENEMA. BED ALARM MAINTAINED FOR PT'S SAFETY. CALL LIGHT WITHIN REACH.
[2017-01-06 16:00] VITALS: BP 116/48
--- NOTE | 2017-01-06 18:30 | NUR ---
IN TO GIVE PT FLEETS ENEMA, PT'S FAMILY PRESENT AT THIS TIME, STATING SHE HASN'T EATEN MUCH IN OVER A WEEK AND WOULD RATHER HER NOT HAVE THE ENEMA, PT AGREES, THEY'D LIKE TO WAIT ANOTHER DAY TO SEE IF ONCE SHE IS EATING MORE IF SHE WILL HAVE BM ON HER OWN.
[2017-01-06 20:00] VITALS: BP 141/59
--- NOTE | 2017-01-06 20:30 | NUR ---
PATIENT RESTING IN BED, ALERT TO PERSON ONLY. PLEASANTLY CONFUSED. NO VOICED COMPLAINTS AT THIS TIME. ENCOURAGED HER TO PRESS HER CALL LIGHT BEFORE GETTING OUT OF BED. RESPIRATIONS ARE EASY/REG, NO SXS OF DISTRESS. WILL MONITOR.
[2017-01-07] VITALS (7 sets, daily range): BP systolic 102–155; BP diastolic 35–93
--- NOTE | 2017-01-07 01:49 | NUR ---
SLEEPING, NO SXS OF DISTRESS. RESPIRATIONS EASY/REG. HR 80S PER CM. CALL LIGHT IS IN REACH. WILL MONITOR
--- NOTE | 2017-01-07 03:15 | NUR ---
24 HOUR CHART CHECK COMPLETE
--- NOTE | 2017-01-07 09:55 | NUR ---
LEFT TWO MESSAGES FOR DR. MARTINEZ REGARDING PATIENTS HEART RATE. WAITING FOR RESPONSE. 3772 PATIENT C/O SOB. SPO2 85% RA AND PICKED UP TO 94% HEART RATE WAS TACHY AT 140-150 AND AT ONE POINT WAS UP TO 160. SPOKE WITH DR. MARTINEZ SEE NEW ORDERS.
--- NOTE | 2017-01-07 10:17 | NUR ---
CALLED PHARMACY TO SEND PO METOPROLOL UP IMMEDIATELY.
--- NOTE | 2017-01-07 10:20 | NUR ---
TRIED TO GET IN TOUCH WITH DR. MARTINEZ TO GET PO METOPROLOL CHANGED TO IV. LEFT A MESSAGE ON HIS CELL PHONE. PATIENTS HEART RATE UP TO 180'S. OBTAINED MONITOR STRIPS FROM [employer], RETURNED TO PATIENTS BEDSIDE AND ELECTRIC METER INSTALLER HELPER WAS CALLED. PATIENT STILL REMAINED ASYMPTOMATIC. I EXPLAINED TO THE PATIENT AND HER WHAT HAPPENS IN A RAPID RESPONSE AND WHY. PATIENT WAS TRANSFERRED TO THE ICCU.
--- NOTE | 2017-01-07 10:20 | NUR ---
PATIENT HAVING SHORTNESS OF BREATH, HR 160'S UP TO 180'S AND IRREGULAR, PERIODS OF AFIB WITHOUT PRIOR HISTORY OF AFIB. BP 125/65, TEMP. 98.2, 26 RESP/MIN. POX 98% 2L NC, SHE DENIES CHEST PAIN OR ANY OTHER S/S BESIDES DYSPNEA. IS AT BEDSIDE. DR. MARTINEZ PHONED EARLIER FOR A HR OF 140'S, ORDER FOR LOPRESSER 25MG PO OBTAINED, NOT YET PROFILED AND ADMINISTERED. DR. MARTINEZ PHONED AGAIN, ANSWERING MACHINE REACHED, MESSAGE LEFT RE: THESE FINDINGS. HR CONTINES TO BE IRREGULAR IN 170'S, SHORTNESS OF BREATH HAS NOT LESSENED OR IMPROVED. BOX HINGE AND LOCK ATTACHER CALLED.
--- NOTE | 2017-01-07 10:37 | NUR ---
EKG OBTAINED AND CARDIZEM DRIP STARTED DURING MAKING DEPARTMENT PREPARER AND PATIENT TRANSFERRED TO ICCU.
[2017-01-07 10:48] LABS: BASO % 0.3 % (0.0-1.0); EOS # 0.1 10*3/uL (0.0-0.4); EOS % 1.8 % (1.0-4.0); HEMATOCRIT 32.8 % (37.0-47.0); HEMOGLOBIN 11.4 g/dl (12.0-16.0); LYMPH # 0.6 10*3/uL (1.3-4.4); LYMPH % 8.2 % (27.0-41.0); MEAN CELL VOLUME 89.6 fl (81.0-99.0); MEAN CORPUSCULAR HGB 31.1 pg (27.0-31.0); MEAN CORPUSCULAR HGB CONC 34.8 g/dl (33.0-37.0); MEAN PLATELET VOLUME 9.3 fl (9.6-12.3); MONO # 0.2 10*3/uL (0.1-1.0); MONO % 2.7 % (3.0-9.0); NEUT # 6.4 10*3/uL (2.3-7.9); NEUT % 86.6 % (47.0-73.0); PLATELET COUNT AUTOMATED 142 10*3/uL (130-400); RED BLOOD COUNT 3.66 10*6/uL (4.10-5.10); RED CELL DISTRI WIDTH 13.1 % (0-14.5); WHITE BLOOD COUNT 7.3 10*3/uL (4.8-10.8)
--- NOTE | 2017-01-07 11:00 | NUR ---
MESSAGE LEFT WITH DR. MARTINEZ REGADING TRANSFER TO ICCU FOR A-FIB WITH RVR. HEART RATE 140-180'S. BP 120'S SYSTOLIC.
[2017-01-07 11:02] LABS: ALBUMIN 2.5 gm/dl (3.1-4.5); CREATININE 1.08 mg/dL (0.55-1.02); POTASSIUM 3.2 mmol/L (3.5-5.1); TOTAL PROTEIN 6.2 gm/dL (6.4-8.2)
[2017-01-07 11:04] LABS: FREE T4 1.6 ng/dl (0.76-1.46)
--- NOTE | 2017-01-07 11:08 | NUR ---
DR. UMANZOR MADE AWARE OF CONSULT.
[2017-01-07 11:10] LABS: THYROID STIM HORMONE (HS) 1.9 uIU/ml (0.358-4.75)
--- NOTE | 2017-01-07 12:00 | NUR ---
DR. WATERS HERE TO SEE PATIENT ON CONSULT.
--- NOTE | 2017-01-07 12:00 | NUR ---
CARDIZEM GTT TITRATED TO 10MG/HR FOR HEART RATE 140'S A-FIB.
--- NOTE | 2017-01-07 12:00 | NUR ---
ABG'S OBTAINED FROM RIGHT RADIAL AND SENT TO LAB ON ICE.
[2017-01-07 12:04] LABS: ABG HCO3 21.1 mmol/l (22-26); ARTERIAL BLOOD GAS PCO2 28.6 mmHg (35-45); ARTERIAL BLOOD GAS PH 7.482 (7.35-7.45); ARTERIAL BLOOD GAS PO2 96.7 mmHg (80-90)
--- NOTE | 2017-01-07 14:23 | NUR ---
DR. WATERS NOTIFIED OF ELEVATED D-DIMER 4.53 AND ABG RESULTS. NEW ORDERS RECEIVED. DR. MARTINEZ CALLED IN AND UPDATED ON PATIENT'S CONDITION. NO FURTHER ORDERS RECEIVED.
--- NOTE | 2017-01-07 14:38 | NUR ---
#22 GAUGE IV STARTED IN SABRINA FOR CTA CHEST.
--- NOTE | 2017-01-07 15:53 | NUR ---
CARDIAZEM GTT TITRATED OFF DUE TO PT'S HEART RATE DROPPING TO 58 AND NORMAL SINUS RYTHMN NOW. WILL CONTINUE TO CLOSELY MONITOR.
--- NOTE | 2017-01-07 17:55 | NUR ---
PT ATE ONLY 10% OF HER DINNER DESPITE BEING ENCOURAGED BY NURSE AND HER TO TRY AND EAT SOMETHING. PT JUST BECAME AGITATED AND YELLED THAT SHE WAS NOT HUNGRY.
--- NOTE | 2017-01-07 20:40 | NUR ---
PT. RESTING IN BED. HEP LOCK'S x2 IN RA AND SABRINA HEP LOCK x1 NOTED. LUNGS CLEAR BUT DIMINISHED BILAT, PULSE OX 97% ON 2L NC. ABDOMEN SOFT, NONDISTENDED AND HYPO, NO PERIPHERAL EDEMA NOTED. RESP. EASY AND REG ,NO DISTRESS. JAGDISH RAYGOZA RN
[2017-01-08] VITALS: BP 134/59
[2017-01-08 04:00] VITALS: BP 148/63
[2017-01-08 08:00] VITALS: BP 131/54
--- NOTE | 2017-01-08 10:43 | NUR ---
PHYSICAL THERAPY Physical Therapy Evaluation completed this date. See eval document for further details. Will begin PT intervention to address the impairments of muscle weakness, decreased functional mobility I, and inability to ambulate. Recommend SN[place] [id number] based on chart review and PT eval. Brandy Tracy, PT
--- NOTE | 2017-01-08 10:57 | NUR ---
In to see patient, at bedside. Discussed discharge planning, stated he cannot care for her at home with her current condition, asked referral be made to [facility], patient in agreement. Contacted [facility], faxed referral, waiting on accpetance.
--- NOTE | 2017-01-08 11:00 | NUR ---
PT DENTURES REMOVED, GUMS AND ROOF OF MOUTH RED/RAW AND IMFLAMED ALOT OF OLD FOOD AND DEBRIS NOTED IN MOUTH, ALONG GUMS AND ON ROOF OF MOUTH UNDER THE DENTURES, UPDATED, MED ORDERED
[2017-01-08 12:00] VITALS: BP 142/61
--- NOTE | 2017-01-08 12:46 | NUR ---
Patient has been accepted to [facility], hospital exemption completed online in [employer] system, 3 night stay completed. patient can go when stable for discharge.
[2017-01-08 13:32] LABS: BASO % 0.3 % (0.0-1.0); EOS # 0.1 10*3/uL (0.0-0.4); EOS % 2.2 % (1.0-4.0); HEMATOCRIT 30.6 % (37.0-47.0); HEMOGLOBIN 10.6 g/dl (12.0-16.0); LYMPH # 0.5 10*3/uL (1.3-4.4); LYMPH % 7.2 % (27.0-41.0); MEAN CELL VOLUME 89.7 fl (81.0-99.0); MEAN CORPUSCULAR HGB 31.1 pg (27.0-31.0); MEAN CORPUSCULAR HGB CONC 34.6 g/dl (33.0-37.0); MEAN PLATELET VOLUME 9.6 fl (9.6-12.3); MONO # 0.2 10*3/uL (0.1-1.0); MONO % 3.2 % (3.0-9.0); NEUT # 5.4 10*3/uL (2.3-7.9); NEUT % 86.8 % (47.0-73.0); PLATELET COUNT AUTOMATED 175 10*3/uL (130-400); RED BLOOD COUNT 3.41 10*6/uL (4.10-5.10); RED CELL DISTRI WIDTH 13.4 % (0-14.5); WHITE BLOOD COUNT 6.3 10*3/uL (4.8-10.8)
[2017-01-08 13:43] LABS: BUN 21 mg/dl (7-24); CHLORIDE 100 mmol/L (98-107); CREATININE 0.95 mg/dL (0.55-1.02); POTASSIUM 3.2 mmol/L (3.5-5.1); SODIUM 135 mmol/L (136-145)
[2017-01-08 14:05] LABS: ALBUMIN 2.3 gm/dl (3.1-4.5); BILIRUBIN, DIRECT 0.1 mg/dL (0.0-0.2); TOTAL PROTEIN 5.9 gm/dL (6.4-8.2)
--- NOTE | 2017-01-08 14:31 | NUR ---
DR PAGE NOTIFIED OF NEW CONSULT ANNERAVIOLETAUPLALITEDON MOST RECENT BMP AND RENAL PANEL
--- NOTE | 2017-01-08 14:56 | NUR ---
PHYSICAL THERAPY Patient seen this pm 1:1 for therapy and was supine in bed with continuos O2 / IV treatment. Surendra was present as patient transfered sup to sit EOB, Mod A x 1, tolerating EOB sit x 5 minutes with B UE support. Patient's heart rate and respirations remained WFL's during entire treatment including several sit to stand tranfers, Min / ADJUNCT LATIN PROFESSOR x 1. Following brief seated rest break, patient completed B LE therex, AROM, all planes x 10 reps each to increase LE strength. Patient returned to supine in bed and remained with call light and bed alarm activitated for safety. Will continue per POC as tolerated. Adam Douglass, SUPPORT STAFF
[2017-01-08 16:00] VITALS: BP 132/71
--- NOTE | 2017-01-08 17:15 | NUR ---
UP TO RECLINER WITH ASSIST X 1
--- NOTE | 2017-01-08 18:00 | NUR ---
DR PAGE HERE TO SEE PT
--- NOTE | 2017-01-08 19:46 | NUR ---
PT. UP TO BSC WITH ASSIST. HEP LOCK IN SABRINA AND RA ASYMPT. IVF CONTINUE VIA ONE BAG ORDERED. ABDOMEN SOFT, NONDISTENDED AND NORMO, NO PERIPHERAL EDEMA NOTEDL. PT. HAD SMALL AMT OF LIQUID BROWN BM, INCONTINENT FOR ANOTHER SMALL AMT. PT. STATES NO APPETITE AT THIS TIME AND REFUSING REMAINDER OF DINNER. REMAINS VERY CONFUSED, BED ALARM ON. JAGDISH RAYGOZA RN
[2017-01-08 20:00] VITALS: BP 142/55
--- NOTE | 2017-01-08 21:34 | NUR ---
PT. AGGITATED AND DOES NOT WANT TO TAKE MEDICATION. PILLS CRUSHED IN APPLE SAUCE AND PT. SPIT OUT TWICE, ONCE ON BED AND ONCE ON NURSES. PT. GETTING MORE AGGITATED, VERY CONFUSED. PULLING OFF MONITOR LEADS, TELLING NURSES NOT TO TOUCH HER TO REPLACE THEM. TRYING TO HIT STAFF. ATTEMPTED MULTIPLE TIMES TO TALK TO PATIENT AND EXPLAIN NEED FOR PILLS AND REASSURE. PT. NOT COOPERATIVE AT THIS TIME. JAGDISH RAYGOZA RN
[2017-01-09] VITALS (10 sets, daily range): BP systolic 99–165; BP diastolic 38–77
--- NOTE | 2017-01-09 02:42 | NUR ---
PT. REPEATEDLY GETTING OUT OF BED AND REMAINS VERY CONFUSED. THINKS PEOPLE ARE LOOKING IN HER WINDOW AND WORRIED ABOUT THE MAN WHO TOOK THE SCHOOL BUS. ALSO LOOKING FOR HER . MULTIPLE ATTEMPTS TO REORIENT UNSUCCESSFUL. JAGDISH RAYGOZA RN
--- NOTE | 2017-01-09 04:44 | NUR ---
PT. REFUSING AM MEDS, STATED SHE IS NOT TAKING PILLS UNTIL SHE TALKS WITH DR. MARTINEZ. EXPLAINED MULTIPLE TIMES WHAT MEDS WERE FOR AND NEED FOR THEM. PT. STILL REFUSING, STATING SHE NEEDS TO GET ON THE BUS. PT. VERY CONFUSED. MEDS CRUSHED AND DISOLVED IN WATER AND GIVEN WITH A SYRINGE. PT. SWALLOWED SMALL AMT OF WATER WITH MEDS. ATTEMPTING TO PULL OUT IV. IV CLING WRAPPED. PT. PULLING OFF MONITOR LEADS AND TELLING US TO GET OFF HER PROPERTY AND NOT COME BACK. ATTEMPTS TO REORIENT PT UNSUCCESSFUL. JAGDISH RAYGOZA RN
[2017-01-09 04:56] LABS: BASO % 0.3 % (0.0-1.0); EOS # 0.2 10*3/uL (0.0-0.4); EOS % 2.2 % (1.0-4.0); HEMATOCRIT 28.7 % (37.0-47.0); HEMOGLOBIN 9.9 g/dl (12.0-16.0); LYMPH # 0.6 10*3/uL (1.3-4.4); LYMPH % 8.4 % (27.0-41.0); MEAN CELL VOLUME 89.7 fl (81.0-99.0); MEAN CORPUSCULAR HGB 30.9 pg (27.0-31.0); MEAN CORPUSCULAR HGB CONC 34.5 g/dl (33.0-37.0); MEAN PLATELET VOLUME 9.5 fl (9.6-12.3); MONO # 0.3 10*3/uL (0.1-1.0); MONO % 4.3 % (3.0-9.0); NEUT % 84.1 % (47.0-73.0); PLATELET COUNT AUTOMATED 186 10*3/uL (130-400); RED CELL DISTRI WIDTH 13.2 % (0-14.5); WHITE BLOOD COUNT 7.1 10*3/uL (4.8-10.8)
[2017-01-09 05:24] LABS: ALBUMIN 2.2 gm/dl (3.1-4.5); BUN 19 mg/dl (7-24); CHLORIDE 102 mmol/L (98-107); CREATININE 0.94 mg/dL (0.55-1.02); PHOSPHOROUS 2.4 mg/dL (2.5-4.9); POTASSIUM 2.9 mmol/L (3.5-5.1); SODIUM 137 mmol/L (136-145)
--- NOTE | 2017-01-09 05:40 | NUR ---
PT'S HR 100'S - 120'S, AFIB. PT. AGGITATED. UP TO BSC EVERY 15-20MINUTES AND ASSISTED BACK TO BED. PT. YELLING AT STAFF. ATTEMPTS TO CALM PATIENT UNSUCCESSFUL. PT. SPITTING OUT MEDICATIONS, MEDS DISSOLVED IN WATER AND FED WITH SYRINGE, PT. REFUSING TO SWALLOW. MULTIPLE ATTEMPTS MADE TO GET PATIENT TO TAKE MEDICATIONS, FINALLY WITH SUCCESS. JAGDISH RAYGOZA RN
--- NOTE | 2017-01-09 06:00 | NUR ---
DR. CEVALLOS BEEPED REGARDING PT'S RETURN TO AFIB. AWAITING RETURN CALL. JAGDISH RAYGOZA RN
--- NOTE | 2017-01-09 06:05 | NUR ---
AWAITING DR. CEVALLOS'S RETURN CALL. PT'S HR 80'S BACK TO NSR AT 0604. PERIODS OF AFIB AND NSR CURRENTLY. JAGDISH RAYGOZA RN
--- NOTE | 2017-01-09 09:00 | NUR ---
PATIENT HR GOING HIGHER. PATIENT VERY ANXIOUS FIDGETY WILL NOT SIT STILL. AT BEDSIDE.
--- NOTE | 2017-01-09 09:22 | NUR ---
PHYSICAL THERAPY Patient was sitting up in bedside chair with table tray in front of her upon therapist arrival for therapy this am. Patient was pleasantly confused and needed verbal cueing to complete all task this session. Patient performed seated B LE, AROM, therex, all planes x 15 reps each to increasee LE strength. Patient also transfers sit to stand Min A and ambulates with use of wh walker, Min A, 50' x 1, demonstrating Poor safety with walker navigation. Patient returned to beside chair with only mild fatigue on room air and remained with call light and tray table. Surendra arrived observing patient return to room during gait and was very pleased she was up and walking. Will continue per POC as tolerated to return to PLOF. Adam Douglass, COMMISSIONER PUBLIC WORKS
--- NOTE | 2017-01-09 10:00 | NUR ---
DR. CEVALLOS HERE ROUNDING PATIENT IS BACK IN AFIB RVR 160'S.
--- NOTE | 2017-01-09 10:30 | NUR ---
CARDIZEM GTT RESTARTED 10 BOLUS GIVEN.
--- NOTE | 2017-01-09 11:00 | NUR ---
PATIENT CONVERTED BACK TO NSR 70-80.
--- NOTE | 2017-01-09 12:30 | NUR ---
PHYSICAL THERAPY WALKING PATIENT IN ICCU.
--- NOTE | 2017-01-09 13:05 | NUR ---
PHYSICAL THERAPY Patient was seen this pm 1:1 for therapy and was sitting up in bedside recliner upon therapist arrival with continuous IV treatment. Patient performed seated B LE therex in all planes x 10 reps each, followed by multiple sit to stand transfers, Min A, including standing marching and 90 degree turns with use of wh walker. Patient demonstrated mild fatigue along with bouts of increased confusion, requiring v/c to focus on task in completing all treatment. Patient returned to bedside chair and reamined with tray table and call light with nursing professor present. Will continue per POC as tolerated to improve safe functional mobility. Adam Douglass, GLASS ETCHER HELPER
--- NOTE | 2017-01-09 13:50 | NUR ---
DR. CHRIS HERE ROUNDING. AWARE OF NO OUT PUT YET TODAY. ALSO AWARE OF POOR ORAL INTAKE. DOCTOR WANTS BLADDER SCAN AND IF GREATER THAN 200CC MAY STRAIGHT CATH FOR URINE SPECIMENS OTHERWISE OK TO WAIT UNTIL CLEAN CATCH OBTAINED.
--- NOTE | 2017-01-09 14:54 | NUR ---
Nutritional Support Services Note: Appetite is poor for meals, she receives a renal diet. Recommend diet change to regular with Boost supplements po BID. Encourage intake and honor food preferences. Leda Diop
--- NOTE | 2017-01-09 15:38 | NUR ---
BLADDER SCAN REVEALED > 447, PATIENT UP TO BSC AND VOIDED 350. SPECIMENS SENT TO LAB.
[2017-01-09 15:44] LABS: BILIRUBIN NEGATIVE (NEGATIVE); BLOOD 2+ (NEGATIVE); CLARITY SL CLOUDY (CLEAR); COLOR YELLOW (YELLOW); GLUCOSE NEGATIVE (NEGATIVE); KETONE NEGATIVE (NEGATIVE); LEUKO ESTERASE 2+ (NEGATIVE); NITRITE NEGATIVE (NEGATIVE); PH 5.5 (5.0-9.0); UROBILINOGEN 0.2 E.U./dl (0.2-1.0)
[2017-01-09 15:53] LABS: URINE CREATININE RANDOM 97.4 mg/dL
--- NOTE | 2017-01-09 23:00 | NUR ---
PT HR 60'S, CARDIZEM GTT DECREASED TO 2.5MG/HR.
--- NOTE | 2017-01-09 23:30 | NUR ---
PT HR 59, CARDIZEM OFF AT THIS TIME.
[2017-01-10] VITALS: BP 126/48
--- NOTE | 2017-01-10 | NUR ---
PT CONFUSED, COMBATIVE. TRYING TO HIT, PINCH, AND KICK. ATTEMPTS TO REORIENT PT INEFFECTIVE.
--- NOTE | 2017-01-10 01:50 | NUR ---
PT VERY COMBATIVE AND HOSTILE. KICKING, HITTING, SCREAMING OUT. UNABLE TO REORIENT. DR Merari ASHER NOTIFIED.
[2017-01-10 04:00] VITALS: BP 133/58
[2017-01-10 05:17] LABS: BASO % 0.3 % (0.0-1.0); EOS # 0.2 10*3/uL (0.0-0.4); EOS % 2.8 % (1.0-4.0); HEMATOCRIT 27.5 % (37.0-47.0); HEMOGLOBIN 9.8 g/dl (12.0-16.0); LYMPH # 0.7 10*3/uL (1.3-4.4); LYMPH % 10.6 % (27.0-41.0); MEAN CELL VOLUME 89.6 fl (81.0-99.0); MEAN CORPUSCULAR HGB 31.9 pg (27.0-31.0); MEAN CORPUSCULAR HGB CONC 35.6 g/dl (33.0-37.0); MEAN PLATELET VOLUME 9.3 fl (9.6-12.3); MONO # 0.3 10*3/uL (0.1-1.0); MONO % 4.9 % (3.0-9.0); NEUT # 5.6 10*3/uL (2.3-7.9); NEUT % 80.8 % (47.0-73.0); PLATELET COUNT AUTOMATED 208 10*3/uL (130-400); RED BLOOD COUNT 3.07 10*6/uL (4.10-5.10); RED CELL DISTRI WIDTH 13.4 % (0-14.5); WHITE BLOOD COUNT 6.9 10*3/uL (4.8-10.8)
[2017-01-10 05:29] LABS: BUN 20 mg/dl (7-24); CHLORIDE 104 mmol/L (98-107); CREATININE 1.01 mg/dL (0.55-1.02); POTASSIUM 3.4 mmol/L (3.5-5.1); SODIUM 137 mmol/L (136-145)
--- NOTE | 2017-01-10 07:50 | NUR ---
RESTING IN BED. DENIES ANY COMPLAINTS OF PAIN. VITALS STABLE. PULSE OX 95% ON ROOM AIR. LUNGS CLEAR BILATERALLY. NO EDEMA NOTED. AFEBRILE. SPEECH SLURRED AT TIMES. PLACED UP TO BEDSIDE COMMODE AND THEN PLACED TO CHAIR.
[2017-01-10 08:00] VITALS: BP 126/66
--- NOTE | 2017-01-10 09:37 | NUR ---
Patient accepted to [facility] and can go when ready for discharge.
--- NOTE | 2017-01-10 11:01 | NUR ---
PHYSICAL THERAPY Pt was seen this AM 1:1 for her therapy gait, this is my first time working with Lisy. Pt was up in her gerichair on this visit tray up . Pt is confused and having poor safety awareness. With verbal cueing for everything, transfer sit/stand and standing balance with wheeled wlaker MOD A X 1. Followed by gait total 70' X 1, W/W and MOD RIDING TEACHER X 1, helping George with her W/W, turns and balance safety. Standing balance once back to Pt's room MIN RIDING TEACHER X 1, then sit to rest. Pt's Dr in at this time, tray up on Pt's gerichair, call light. JUDAH NOLAN LOGGING CREW FOREMAN.
[2017-01-10 12:00] VITALS: BP 102/42
--- NOTE | 2017-01-10 12:00 | NUR ---
PLACED BACK TO BED WITH 2 ASSIST.
--- NOTE | 2017-01-10 12:33 | NUR ---
DR. PEARL'S ANSWERING SERVICE NOTIFIED OF CONSULT.
[2017-01-10 16:00] VITALS: BP 137/61
--- NOTE | 2017-01-10 16:00 | NUR ---
ATTEMPTING TO GET OUT OF BED. PLACED ON BEDSIDE COMMODE TO VOID. PLACED ON CHAIR.
[2017-01-10 20:00] VITALS: BP 136/58
[2017-01-11] VITALS: BP 136/67
--- NOTE | 2017-01-11 00:05 | NUR ---
RESTING IN BED WITH EYES OPEN. COOPERATIVE AT PRESENT. HEP LOCK'S INTACT X'S2. NO DISTRESS NOTED. BED ALARM INTACT.
--- NOTE | 2017-01-11 03:23 | NUR ---
[id number] OOB FREQUENTLY. BED ALARM INTACT.REMAINS CONFUSED, BUT COOPERATIVE.
[2017-01-11 04:00] VITALS: BP 147/69
--- NOTE | 2017-01-11 06:24 | NUR ---
REMAINS VERY CONFUSED, BUT COOPERATIVE AND PLEASANT. MONITOR REMAINS NSR IN THE 70'S. NO DISTRESS NOTED.CONDITION GUARDED.
[2017-01-11 08:00] VITALS: BP 151/74
--- NOTE | 2017-01-11 08:15 | NUR ---
PLACED UP INTO CHAIR WITH ASSIST TIMES ONE. UPPER AND LOWER DENTURES PLACED IN MOUTH. DISORIENTED TO PERSON, PLACE AND TIME. NSR CONTINUES ON HEART MONITOR WITH HR 60-70'S. PULSE OX 95% ON ROOM AIR. AFEBRILE.
--- NOTE | 2017-01-11 10:27 | NUR ---
PHYSICAL THERAPY Patient seen this am 1:1 for therapy sitting up in bedside chair with her Surendra present. Patient was pleasant but presented with increased confusion this session and required multiple v/c's to complete all task. Patient transfers sit to stand Min A requiring therapist support upon initial rise secondary to unsteady standing posture. Patient ambulates with use of wh walker, 75'x 1, CGA / Min A, demonstrating Poor walker safety and navigation with decreased stride. Patient returned to bedside chair and remained with tray table and call light and requires 24/7 supervision. Will continue as tolerated to improve functional mobility and transfers. Adam Douglass, ONCOLOGY PHYSICIAN ASSISTANT
[2017-01-11 12:00] VITALS: BP 96/40
--- NOTE | 2017-01-11 15:02 | NUR ---
JEFF CALLED AND NOTIFIED OF CONSULT WITH DR. OLIVARES.
--- NOTE | 2017-01-11 15:24 | NUR ---
RESTLESS. PLACED UP INTO CHAIR WITH ASSIST TIMES ONE.
[2017-01-11 16:00] VITALS: BP 122/52
[2017-01-11 20:00] VITALS: BP 118/50; BP 153/70
--- NOTE | 2017-01-11 21:00 | NUR ---
PATIENT PUT IN CHAIR, DUE TO CONFUSION AND TRYING TO GET OUT OF BED AND LEAVE.
--- NOTE | 2017-01-11 21:30 | NUR ---
PATIENT UNAWARE OF BEING IN HOSPITAL, STATED "YOUR HOUSE IS VERY NICE". PATIENT WANT COAT TO GO HOME. PATIENT ALSO STATED THERE ARE DEMONS AROUND AND THAT SHE HAD A STORY. PATIENT DIDNT MAKE SENSE MOST OF THE TIME. PATIENT DID ASK FOR . DIDNT WANT ANYTHING TO EAT OR DRINK ANYTHING. PATIENT ENCOURAGED TO DRINK WATER, OR HAVE A SNACK THAT WAS LEFT BY HER .
--- NOTE | 2017-01-11 21:50 | NUR ---
PATIENT SCREAMING, POUNDING ON CHAIR, KNOCKED OVER BEDSIDE. CONTACTED DR. MEDINA AND RECEIVED ORDER FOR HALDOL, WILL ADMINISTER AND MONITOR PATIENT.
--- NOTE | 2017-01-11 22:30 | NUR ---
PATIENT LESS RESTLESS IN CHAIR, AFTER HALDOL GIVEN. WILL CONTINUE TO MONITOR.
[2017-01-12] VITALS: BP 130/70
[2017-01-12 04:00] VITALS: BP 152/76
[2017-01-12 04:46] LABS: BASO # 0.1 10*3/uL (0.0-0.1); BASO % 0.9 % (0.0-1.0); EOS # 0.2 10*3/uL (0.0-0.4); HEMATOCRIT 30.4 % (37.0-47.0); HEMOGLOBIN 10.4 g/dl (12.0-16.0); LYMPH % 17.8 % (27.0-41.0); MEAN CELL VOLUME 90.7 fl (81.0-99.0); MEAN CORPUSCULAR HGB CONC 34.2 g/dl (33.0-37.0); MEAN PLATELET VOLUME 8.8 fl (9.6-12.3); MONO # 0.4 10*3/uL (0.1-1.0); MONO % 6.2 % (3.0-9.0); NEUT % 70.6 % (47.0-73.0); RED BLOOD COUNT 3.35 10*6/uL (4.10-5.10); RED CELL DISTRI WIDTH 13.3 % (0-14.5); WHITE BLOOD COUNT 5.7 10*3/uL (4.8-10.8)
[2017-01-12 04:50] LABS: PLATELET COUNT AUTOMATED 285 10*3/uL (130-400)
[2017-01-12 05:11] LABS: BUN 20 mg/dl (7-24); CHLORIDE 101 mmol/L (98-107); CREATININE 0.85 mg/dL (0.55-1.02); POTASSIUM 3.3 mmol/L (3.5-5.1); SODIUM 140 mmol/L (136-145)
--- NOTE | 2017-01-12 05:50 | NUR ---
PATIENT HAS RESTED MOST OF THE NIGHT, DID GET UP ONCE TO GO TO BEDSIDE. PATIENT DOES TOSS AND TURN AND PLAY WITH WIRES ON HEART MONITOR. HASNT TRIED TO GET OUT OF BED. WILL CONTINUE TO MONITOR.
[2017-01-12 08:00] VITALS: BP 160/80
--- NOTE | 2017-01-12 08:07 | NUR ---
Shift chart check completed.
--- NOTE | 2017-01-12 08:50 | NUR ---
DR CEVALLOS HERE AND EKG DISCUSSED. PATIENT CANNOT BE DISCHARGED UNTIL SUNDAY D/T NEEDING TO BE MONITORED FOR 72 HOURS AFTER THE START OF THE BETAPACE. PT TOOK A FEW SMALL BITES WITH HER MEDICATIONS. NEEDS STRONG FREQ ENCOURAGEMENT TO DO SMALL BASIC TASKS SUCH SWALLOWING, SUCKING, CHEWING. PATIENT ANSWERED THAT SHE DOESN'T THINK THAT SHE IS AT HOME BUT ANSERED THAT SHE MAY BE IN THE HOSPITAL. BROWN & YELLOW BANDS APPLIED. FALLING STAR PLACED ON DOOR & YELLOW SLIPPERS ON. DYLAN ON. CALMER THAN EARLIER THIS AM
--- NOTE | 2017-01-12 10:48 | NUR ---
UNABLE TO DO MED REC. PATIENT UNABLE TO ANSWER ANY QUESTIONS
--- NOTE | 2017-01-12 10:48 | NUR ---
SLEEPING AFTER PHYSICAL THERAPY ATTEMPTED TO WORK WITH HER.
--- NOTE | 2017-01-12 11:09 | NUR ---
PHYSICAL THERAPY Pt seen for her therapy session and just not doing as well today, dont know why. Transfer supine/sit, sitting balance MOD A X 1. Sit/stand and standing balance MOD A X 1, with wheeled walker. Followed by gait 22' X 1, and became MAX A X 1, and had to sit, nurse brought up the chair. Then gait another 22' X 1, back to bed with MOD A X 1, and W/W, said she was just tired. JUDAH NOLAN BUSINESS INTELLIGENCE DIRECTOR.
--- NOTE | 2017-01-12 11:49 | NUR ---
Faxed updates to ammy at [facility], notified the plan is to discharge patient there on sunday01/14/17
[2017-01-12 12:00] VITALS: BP 140/68
[2017-01-12 12:11] LABS: VITAMIN D, 25-HYDROXY 36.6 ng/mL (30-100)
--- NOTE | 2017-01-12 12:14 | NUR ---
AT BEDSIDE - PT CURLED UP ON HER SIDE AGAINST THE RAIL BUT CONTINUES TO MOVE BACK WHEN SHIFTED - HOLDING ONTO THE RAIL BUT QUIET AND NONCOMBATIVE
--- NOTE | 2017-01-12 15:31 | NUR ---
NEW IV SITE TO [facility] SECURE & PATENT. PT TOLERATED WELL. SISTER AT BEDSIDE. PT ENCOURAGED TO DRINK BUT WOULDN'T. DOZING INTERMITTENTLY.
[2017-01-12 16:00] VITALS: BP 165/65
--- NOTE | 2017-01-12 16:22 | NUR ---
DYLAN hose not reapplied at this time as the previous pair were starting to cause red mccray. Larger pair at bedside for later.
--- NOTE | 2017-01-12 16:34 | NUR ---
DR PAGE HERE - SPOKE WITH THE SISTER AND SAID IF THEY DECIDE THEN THE PEG TUBE WILL BE PLACED SUNDAY THE IS NOW QUESTIONING IF HE WANTS IT DONE. PATIENT UNABLE TO MAKE DECISIONS
--- NOTE | 2017-01-12 18:34 | NUR ---
PT ATE 2 VERY SMALL BITES OF FISH & 1 VERY SMALL AMOUNT OF COPTTAGE CHEESE BUT HAD TO BE REMINDED TO SWALLOW. FREQ DEMONSTRATIONS TO SWALLOW BY STAFF & ENCOURAGING BY . 60 ML WATER GIVEN IN TINY SIPS USING MEDICINE CUP. LOWER DENTURES REMOVED AFTER THEY ARE NOT FITTING & FOOD IS GETTING STUCK UNDER THE TEETH & THE PATIENT IS POCKETING THE FOOD. SOME FISH REMOVED BY STAFF IT IS STUCK IN THE CHEEK.
--- NOTE | 2017-01-12 19:37 | NUR ---
PATIENT LYING IN BED, CALM AT THIS TIME, PATIENT DOES ANSWER THAT SHE DOESNT WANT ANYTHING TO DRINK OR EAT AT THIS TIME. WILL CONTINUE TO MONITOR. PATIENT IN VEIW OF STAFF, BED ALARM.
[2017-01-12 20:00] VITALS: BP 170/74
[2017-01-13] VITALS: BP 160/72
--- NOTE | 2017-01-13 03:32 | NUR ---
PATIENT HAS RESTED MOST OF THE NIGHT, DOES GET RESTLESS AT TIMES AND TAKES OFF BLANKETS AND MESSES WITH CARDIAC LEADS. PATIENT HASNT TRIED TO GET UP OUT OF BED. WILL CONTINUE TO MONITOR.
[2017-01-13 04:00] VITALS: BP 166/82
[2017-01-13 04:26] LABS: BASO # 0.1 10*3/uL (0.0-0.1); BASO % 1.3 % (0.0-1.0); EOS # 0.2 10*3/uL (0.0-0.4); EOS % 2.7 % (1.0-4.0); HEMATOCRIT 33.6 % (37.0-47.0); HEMOGLOBIN 11.7 g/dl (12.0-16.0); LYMPH # 1.3 10*3/uL (1.3-4.4); LYMPH % 18.9 % (27.0-41.0); MEAN CELL VOLUME 91.1 fl (81.0-99.0); MEAN CORPUSCULAR HGB 31.7 pg (27.0-31.0); MEAN CORPUSCULAR HGB CONC 34.8 g/dl (33.0-37.0); MEAN PLATELET VOLUME 8.3 fl (9.6-12.3); MONO # 0.5 10*3/uL (0.1-1.0); MONO % 6.9 % (3.0-9.0); NEUT # 4.7 10*3/uL (2.3-7.9); NEUT % 69.8 % (47.0-73.0); PLATELET COUNT AUTOMATED 314 10*3/uL (130-400); RED BLOOD COUNT 3.69 10*6/uL (4.10-5.10); RED CELL DISTRI WIDTH 13.2 % (0-14.5); WHITE BLOOD COUNT 6.8 10*3/uL (4.8-10.8)
[2017-01-13 04:58] LABS: BUN 17 mg/dl (7-24); CHLORIDE 99 mmol/L (98-107); CREATININE 0.88 mg/dL (0.55-1.02); POTASSIUM 3.7 mmol/L (3.5-5.1); PREALBUMIN 9 mg/dl (20-40); SODIUM 137 mmol/L (136-145)
[2017-01-13 08:00] VITALS: BP 161/89
--- NOTE | 2017-01-13 08:51 | NUR ---
PT WILL NOT SWALLOW ANY SOLID FOODS. JUST MOVES THEM AROUND IN HER MOUTH DESPITE VERBAL CUES AND ENCOURAGEMENT. PT WILL SWALLOW SOME LIQUIDS WITH ENCOURAGEMENT. MEDS NEEDED TO BE CRUSHED AND PUT IN JUICE FOR HER TO BE ABLE TO GET THEM DOWN.
--- NOTE | 2017-01-13 09:33 | NUR ---
DR TALAVERA IN TO SEE PT.
--- NOTE | 2017-01-13 10:19 | NUR ---
PT ASSISTED UP TO BEDSIDE COMMODE AND IN TO RECLINER CHAIR WITH 2 ASSIST.
--- NOTE | 2017-01-13 10:44 | NUR ---
DR AGUILAR IN TO SEE PT.
[2017-01-13 11:22] VITALS: BP 117/63
--- NOTE | 2017-01-13 13:39 | NUR ---
PT ASSISTED BACK IN TO BED AFTER SITTING IN UP IN RECLINER CHAIR. 2 ASSIST NEEDED.
[2017-01-13 16:00] VITALS: BP 117/57
--- NOTE | 2017-01-13 17:36 | NUR ---
PT CONTINUES TO ONLY EAT ABOUT 5% OF HER MEAL WITH MUCH COAXING AND ENCOURAGEMENT. AT BEDSIDE.
[2017-01-13 20:00] VITALS: BP 131/70
--- NOTE | 2017-01-13 21:17 | NUR ---
PATIENT REFUSED SCHEDULED MEDICATIONS. PATIENT KEPT SPITTING OUT MEDICATIONS.
--- NOTE | 2017-01-13 22:28 | NUR ---
Patient has become more alert and took her scheduled medications without difficulty. Refer to MAR.
[2017-01-14] VITALS: BP 152/58
--- NOTE | 2017-01-14 04:32 | NUR ---
PATIENT C/O LEFT HIP PAIN. UNABLE TO RATE PAIN ON PAIN SCALE. TYLENOL GIVEN FOR PAIN.
[2017-01-14 05:13] LABS: BASO # 0.1 10*3/uL (0.0-0.1); BASO % 1.1 % (0.0-1.0); EOS # 0.1 10*3/uL (0.0-0.4); EOS % 2.1 % (1.0-4.0); HEMATOCRIT 33.8 % (37.0-47.0); HEMOGLOBIN 11.7 g/dl (12.0-16.0); LYMPH # 1.5 10*3/uL (1.3-4.4); LYMPH % 23.3 % (27.0-41.0); MEAN CELL VOLUME 89.9 fl (81.0-99.0); MEAN CORPUSCULAR HGB 31.1 pg (27.0-31.0); MEAN CORPUSCULAR HGB CONC 34.6 g/dl (33.0-37.0); MEAN PLATELET VOLUME 8.5 fl (9.6-12.3); MONO # 0.5 10*3/uL (0.1-1.0); MONO % 8.2 % (3.0-9.0); NEUT % 64.8 % (47.0-73.0); PLATELET COUNT AUTOMATED 350 10*3/uL (130-400); RED BLOOD COUNT 3.76 10*6/uL (4.10-5.10); RED CELL DISTRI WIDTH 13.3 % (0-14.5); WHITE BLOOD COUNT 6.2 10*3/uL (4.8-10.8)
--- NOTE | 2017-01-14 05:26 | NUR ---
PATIENT SLEEPING. NO SIGNS OF PAIN. TYLENOL EFFECTIVE.
[2017-01-14 05:30] LABS: BUN 24 mg/dl (7-24); CHLORIDE 101 mmol/L (98-107); CREATININE 1.06 mg/dL (0.55-1.02); SODIUM 137 mmol/L (136-145)
[2017-01-14 08:00] VITALS: BP 147/73
--- NOTE | 2017-01-14 08:42 | NUR ---
PT AWAKE AND ALERT. REMAINS CONFUSED. PT DID ALLOW ME TO FEED HER A WHOLE BOWL OF CREAM OF WHEAT FOR BREAKFAST.
--- NOTE | 2017-01-14 10:50 | NUR ---
PT ASSISTED OUT OF BED IN TO RECLINER CHAIR WITH 1 ASSIST NEEDED.
[2017-01-14 16:00] VITALS: BP 119/80
[2017-01-14 19:52] VITALS: BP 143/72
[2017-01-14 22:45] VITALS: BP 132/70
--- NOTE | 2017-01-14 22:45 | NUR ---
[facility] REPORT RECEIVED FROM JENI. PT. IS AWAKE, ALERT, AND ORIENTED TO PERSON AND TIME. RE-ORIENTED TO PLACE AT THIS TIME. PT. HAS PERIODS OF CONFUSION. PT. IS IN BED WITH SIDE RAILS UP, BED IN LOWEST POSITION, AND WHEELS LOCKED. VITALS: SPO2- 97 RA, P- 78 A, R-12, BP-132/70, TEMP-98.7 O. PT. CURRENTLY HAS NO COMPLAINTS OR REQUESTS.
[2017-01-15] VITALS: BP 142/61
[2017-01-15 06:18] LABS: BASO # 0.1 10*3/uL (0.0-0.1); BASO % 1.5 % (0.0-1.0); EOS # 0.1 10*3/uL (0.0-0.4); EOS % 1.1 % (1.0-4.0); HEMATOCRIT 34.2 % (37.0-47.0); HEMOGLOBIN 11.9 g/dl (12.0-16.0); LYMPH # 1.6 10*3/uL (1.3-4.4); LYMPH % 29.1 % (27.0-41.0); MEAN CELL VOLUME 91.7 fl (81.0-99.0); MEAN CORPUSCULAR HGB 31.9 pg (27.0-31.0); MEAN CORPUSCULAR HGB CONC 34.8 g/dl (33.0-37.0); MEAN PLATELET VOLUME 8.6 fl (9.6-12.3); MONO # 0.5 10*3/uL (0.1-1.0); MONO % 8.9 % (3.0-9.0); NEUT # 3.2 10*3/uL (2.3-7.9); NEUT % 58.9 % (47.0-73.0); PLATELET COUNT AUTOMATED 372 10*3/uL (130-400); RED BLOOD COUNT 3.73 10*6/uL (4.10-5.10); RED CELL DISTRI WIDTH 13.4 % (0-14.5); WHITE BLOOD COUNT 5.5 10*3/uL (4.8-10.8)
[2017-01-15 06:45] LABS: CREATININE 1.43 mg/dL (0.55-1.02); POTASSIUM 4.5 mmol/L (3.5-5.1)
[2017-01-15 08:00] VITALS: BP 155/70
[2017-01-15 12:00] VITALS: BP 139/66
--- NOTE | 2017-01-15 12:24 | NUR ---
PHYSICAL THERAPY Lisy was seen this AM 1:1 for her therapy session, present and Pt is confused. Transfer supine/sit MIN A X 1, sitting balance once up CGA X 1. Sit/stand and standing balance with Pt leaning backwards at all times with cues to lean forward for her gait, Pt sitting back on her bed, sit/stand total X 2, for standing balance. Pt had one gait with MOD/MAX A X 1, 32' X 1, with much cueing for gait, balance, turns Pt back supine in bed, call light going to stay. JUDAH NOLAN LEARNING DISABLED TEACHER.
--- NOTE | 2017-01-15 12:36 | NUR ---
SPEECH PATHOLOGY Bedside swallowing evaluation completed as per orders. Patient was alert but with significant confusion, making it difficult for her to accurately answer questions or follow simple commands. Family members were present and provided case hx info. It was reported that patient has been displaying poor intake, having difficulty swallowing foods and spitting foods out. During assessment patient was noted to hold foods (puree) in oral cavity, needing multiple swallows or liquid wash to clear. She was not able to chew soft solid consistency and held it in her mouth until it was removed by clinician. She swallowed small sips of thin liquid with no overt difficulty. Recommend pureed diet and thin liquid. Recommend use of safe swallow strategies such as upright positioning, small bites/sips, allowing her and cuing her to take extra swallows, alternate liquids/solids, hot/cold and using spices/seasonings to heighten sensation to allow her to swallow in a more timely manner. Results and charles. were shared with family members who verbalized understanding. These were also shared with patient's nurse and a written copy was provided for carryover as plan is for discharge to [place] today. Refer to report in [facility] for further information. Thank you for this referral. BRIANNA VICTORIA MS [facility]-RADIOLOGIST CHIEF OF BREAST IMAGING
--- NOTE | 2017-01-15 13:56 | NUR ---
SPOKE WITH SPEECH THERAPY. DIET RECCOMENDATIONS RECEIVED. DR LEWIS NOTIFIED.
[2017-01-15 16:18] LABS: CREATININE 1.25 mg/dL (0.55-1.02); POTASSIUM 4.7 mmol/L (3.5-5.1)
[2017-01-15] MEDS ORDERED: REMERON15 M2 PO (16:33)
[2017-01-15] MEDS ORDERED: GEODON20 MG PO (16:33)
[2017-01-15] MEDS ORDERED: ATIVAN1 MG PO (16:33)
[2017-01-15] MEDS ORDERED: XARE15TA PO (16:33)
[2017-01-15] MEDS ORDERED: BETAPACE80 MG PO (16:33)
[2017-01-15] MEDS ORDERED: EXELON1 EACH T (16:33)
[2017-01-15 16:38] VITALS: BP 157/71
--- NOTE | 2017-01-15 17:30 | NUR ---
Discharge instructions reviewed with patient/family. Patient receptive and verbalizes understanding. Follow-up care arranged. Written instructions given to patient/family. DAHIANA CUELLO
--- NOTE | 2017-01-15 18:40 | NUR ---
REPORT CALLED TO KE AT [facility].
--- NOTE | 2017-01-16 07:43 | NUR ---
PHYSICAL THERAPY CO-SIGN I approve of the Phyical Therapy notes written above. DARINEL CARBAJAL PT
== END 2017-01-15 18:40 | disposition other institution (70) | DRG 682 ==
LOC: ED 08:43 → 4E 11:11 → ICCU 11:11 → EDHOLD 11:11 → 5E 11:11 → 4E 11:22 → ICCU 01-07 10:40 → 5E 01-14 21:44
PROVIDERS: Family Medicine; Internal Medicine; Internal Medicine Cardiovascular Disease; Internal Medicine Nephrology; Nurse Practitioner Family; Psychiatry & Neurology Psychiatry; Student in an Organized Health Care Education/Training Program; ADMIT Internal Medicine
DX: N17.9 Acute kidney failure, unspecified (principal); J96.00 Acute respiratory failure, unspecified whether with hypoxia or hypercapnia; E44.0 Moderate protein-calorie malnutrition; I48.0 Paroxysmal atrial fibrillation; F33.3 Major depressive disorder, recurrent, severe with psychotic symptoms; E87.1 Hypo-osmolality and hyponatremia; R13.10 Dysphagia, unspecified; E86.0 Dehydration; I45.81 Long QT syndrome; Z68.1 Body mass index [BMI] 19.9 or less, adult; E87.6 Hypokalemia; I12.9 Hypertensive chronic kidney disease with stage 1 through stage 4 chronic kidney disease, or unspecified chronic kidney disease; R31.9 Hematuria, unspecified; Z51.5 Encounter for palliative care; N18.3 Chronic kidney disease, stage 3 (moderate); R62.7 Adult failure to thrive; Z66 Do not resuscitate; Z79.01 Long term (current) use of anticoagulants; Z79.82 Long term (current) use of aspirin; Z79.899 Other long term (current) drug therapy; Z83.3 Family history of diabetes mellitus; Z83.49 Family history of other endocrine, nutritional and metabolic diseases; Z90.49 Acquired absence of other specified parts of digestive tract; Z87.440 Personal history of urinary (tract) infections

== ENCOUNTER 2017-01-20 13:44 | Emergency (ER) | payer MEDICARE ==
[~2017-01-20] VITALS: Ht 157.4 cm; Wt 45.4 kg
[~2017-01-20 13:44] MED LIST changes: +ATIVAN1 MG PO; +BETAPACE80 MG PO; +CYCLOBENZAPRINE10 MG PO; +EXELON1 EACH T; +GEODON20 MG PO; +PREDNISONE10 MG PO; +REMERON15 M2 PO; +XARE15TA PO
[2017-01-20 13:51] VITALS: BP 150/65
== END 2017-01-20 21:39 ==
LOC: ED 13:44
DX: S72.111A Displaced fracture of greater trochanter of right femur, initial encounter for closed fracture (principal); N18.3 Chronic kidney disease, stage 3 (moderate); J96.00 Acute respiratory failure, unspecified whether with hypoxia or hypercapnia; E87.6 Hypokalemia; E87.1 Hypo-osmolality and hyponatremia; Z79.899 Other long term (current) drug therapy; Z79.82 Long term (current) use of aspirin; W06.XXXA Fall from bed, initial encounter; Y93.89 Activity, other specified; Y92.89 Other specified places as the place of occurrence of the external cause; Y99.8 Other external cause status

== ENCOUNTER 2017-01-31 16:17 | Inpatient (IN) | payer MEDICARE ==
[~2017-01-31] VITALS: Ht 157.4 cm; Wt 41.9 kg
--- NOTE | ~2017-01-31 | PR ---
[place], [place] PROGRESS NOTE NAME: [facility]ILLAN [facility]: [id number] UNIT #: [id number] ROOM: 421 DOCTOR: SHRUTHI MARTINEZ MD BIRTHDATE: [birth year] DOS: SUBJECTIVE: The patient has been admitted to hospital with marked weakness, unable to eat, unable to thrive and with urinary sepsis, dehydration, metabolic encephalopathy, hyper-magnesium and tachypnea, anorexia and chronic renal failure and hypochromic anemia. She is showing little bit improvement today. She is opening her eyes. She did talk to me and I discussed about her condition with her who was on the bedside and they asked him also whenever any family member is visiting her to encourage to talk to her to move her arms and legs and also try to encourage her to eat and drink more, that will make her a little more energetic. Her CBC showed hypochromic anemia with hemoglobin 8.6, hematocrit 26.2 and basic metabolic profile shows BUN is 35, creatinine 1.25, GFR is 41, indicating chronic renal failure. OBJECTIVE: VITAL SIGNS: Her blood pressure is 104/63, pulse is 112, respirations 20, temperature 98. CHEST: Clear. HEART: Regular. ABDOMEN: Soft. SHRUTHI MARTINEZ MD CM:PNTRANS [id number] SHRUTHI MARTINEZ MD 02/04/17 1245 interface
--- NOTE | ~2017-01-31 | PR ---
[place], [place] PROGRESS NOTE NAME: HUBERT SANTILLAN [facility] #: [id number] UNIT #: [id number] ROOM: 421 DOCTOR: SHRUTHI MARTINEZ MD BIRTHDATE: [birth year] DOS: SUBJECTIVE: The patient has been admitted to the hospital with marked weakness, unable to eat and unable to thrive. She also had severe sepsis with urinary tract infection with acute renal failure, dehydration, metabolic encephalopathy, hypermagnesemia, elevated lipase, tachypnea, anorexia, normocytic anemia, chronic kidney disease, fatigue, proteinuria and malnutrition, failure to thrive. The patient today right now lying in the bed and does not want to talk to me. I talked to the nurses. According to the attending nurse, the patient was very much agitated before and pulled her IV and also Taylor catheter. She was given Ativan that is why she is sleepy now, but she said she had been drinking quite satisfactorily, but not eating much. I encouraged nursing staff to try to hydrate her hydrate her well with Boost and other liquid, whatever she can take ____ make sure she takes it enough. The patient had been admitted to hospital many times recently and it looks like her overall prognosis seems to be very poor as she is noncompliant and she has no desire to eat or do too much. Last time during her admission, there was some discussion regarding the patient may need to G-tube to be put in, but family decided against it, then she was sent to [facility]. OBJECTIVE: VITAL SIGNS: Blood pressure is 133/47, pulse 78, respirations 18, temperature 98. CHEST: Clear. HEART: Regular. ABDOMEN: Soft. SHRUTHI MARTINEZ MD CM:PNTRANS [id number] SHRUTHI MARTINEZ MD 02/03/17 1329 interface
[2017-01-31 16:37] VITALS: BP 120/58
[2017-01-31 17:02] LABS: BASO # 0.1 10*3/uL (0.0-0.1); BASO % 0.5 % (0.0-1.0); HEMATOCRIT 34.2 % (37.0-47.0); HEMOGLOBIN 11.3 g/dl (12.0-16.0); LYMPH # 1.8 10*3/uL (1.3-4.4); LYMPH % 12.3 % (27.0-41.0); MEAN CELL VOLUME 94.5 fl (81.0-99.0); MEAN CORPUSCULAR HGB 31.2 pg (27.0-31.0); MONO # 0.7 10*3/uL (0.1-1.0); MONO % 4.5 % (3.0-9.0); NEUT # 12.2 10*3/uL (2.3-7.9); PLATELET COUNT AUTOMATED 355 10*3/uL (130-400); RED BLOOD COUNT 3.62 10*6/uL (4.10-5.10); RED CELL DISTRI WIDTH 15.8 % (0-14.5); WHITE BLOOD COUNT 14.9 10*3/uL (4.8-10.8)
[2017-01-31 17:11] LABS: ACT PARTIAL THROMBO TIME 20.9 SECONDS (20.8-31.5); INTERNATIONAL NORM RATIO 1.1 (2.0-3.5)
[2017-01-31 17:24] LABS: ALBUMIN 3.2 gm/dl (3.1-4.5); ALKALINE PHOSPHATASE 93 U/L (45-117); BUN 136 mg/dl (7-24); CHLORIDE 102 mmol/L (98-107); CREATININE 5.05 mg/dL (0.55-1.02); LIPASE 428 U/L (73-393); POTASSIUM 4.7 mmol/L (3.5-5.1); SGOT/AST 28 IU/L (3-35); SGPT/ALT 26 U/L (12-78); SODIUM 139 mmol/L (136-145); TOTAL PROTEIN 7.4 gm/dL (6.4-8.2); TROPONIN I < 0.015 ng/ml (<0.045)
[2017-01-31 18:30] VITALS: BP 98/46
[2017-01-31 18:39] LABS: BILIRUBIN 1+ (NEGATIVE); BLOOD 2+ (NEGATIVE); CLARITY CLOUDY (CLEAR); COLOR YELLOW (YELLOW); GLUCOSE NEGATIVE (NEGATIVE); KETONE TRACE (NEGATIVE); LEUKO ESTERASE 3+ (NEGATIVE); NITRITE NEGATIVE (NEGATIVE); UROBILINOGEN 0.2 E.U./dl (0.2-1.0)
[2017-01-31 18:45] LABS: WBC TNTC wbc/hpf (0-5)
[2017-01-31 19:06] VITALS: BP 104/54
--- NOTE | 2017-01-31 19:07 | NUR ---
REPORT GIVEN TO KATIE COTO AT THIS TIME.
--- NOTE | 2017-01-31 19:30 | NUR ---
PT RESTING IN BED. RESPS EASY AND NONLABORED WITH NO S/S OF DISTRESS CALL LIGHT WITH REACH
[2017-01-31 20:00] VITALS: BP 101/52
[2017-01-31 20:05] VITALS: BP 101/52
--- NOTE | 2017-01-31 20:05 | NUR ---
A 81, admitted to 4E, under the services of RAGHAV Zuleta MD with a diagnosis of ABNORMAL LABS. Chief complaint is ABNORNAL LABS. Patient arrived via ambulatory from ER. Monitor applied. Initial assessment completed. Vital signs taken and recorded. RAGHAV ZULETA MD notified of admission to the unit. Orders received. See assessment for past medical history, medications and allergies. Patient and/or family oriented to unit. visitation policy reviewed. Clothing/patient valuable form completed. ANA PRADHAN
[2017-01-31] MEDS ORDERED: REMERON15 M2 PO (20:56)
[2017-01-31] MEDS ORDERED: MEGACE 40400 MG/10 PO (20:57)
--- NOTE | 2017-01-31 20:58 | NUR ---
[facility], PT ALSO STATES THAT SHE HAS HAD THE FLU/PNEUMONIA VACCINE
[2017-01-31 22:00] VITALS: BP 118/57
--- NOTE | 2017-01-31 23:31 | NUR ---
PT IN BED, SLEEPING. EASILY AROUSED. LUNGS DIMINISHED AND CLEAR. TRACE EDEMA NOTED. PT VOICES NO C/O AT THIS TIME. SOME CONFUSION AND [place] NOTED. FLUIDS RUNNING. WILL CONTINUE TO MONITOR.
[2017-02-01] VITALS: BP 146/44
[2017-02-01 06:02] LABS: CREATININE 3.68 mg/dL (0.55-1.02); PHOSPHOROUS 3.4 mg/dL (2.5-4.9); POTASSIUM 4.2 mmol/L (3.5-5.1)
[2017-02-01 06:06] LABS: BASO # 0.1 10*3/uL (0.0-0.1); BASO % 0.8 % (0.0-1.0); LYMPH # 1.9 10*3/uL (1.3-4.4); LYMPH % 13.5 % (27.0-41.0); MEAN CELL VOLUME 96.5 fl (81.0-99.0); MEAN CORPUSCULAR HGB 31.7 pg (27.0-31.0); MEAN CORPUSCULAR HGB CONC 32.8 g/dl (33.0-37.0); MEAN PLATELET VOLUME 9.4 fl (9.6-12.3); MONO # 0.7 10*3/uL (0.1-1.0); NEUT # 11.1 10*3/uL (2.3-7.9); PLATELET COUNT AUTOMATED 298 10*3/uL (130-400); RED BLOOD COUNT 2.84 10*6/uL (4.10-5.10); RED CELL DISTRI WIDTH 15.9 % (0-14.5); WHITE BLOOD COUNT 13.9 10*3/uL (4.8-10.8)
[2017-02-01 06:09] LABS: FREE T4 1.63 ng/dl (0.76-1.46); HEMATOCRIT 27.4 % (37.0-47.0)
[2017-02-01 06:18] LABS: THYROID STIM HORMONE (HS) 2.66 uIU/ml (0.358-4.75)
[2017-02-01 06:49] LABS: ACT PARTIAL THROMBO TIME 20.7 SECONDS (20.8-31.5); INTERNATIONAL NORM RATIO 1.1 (2.0-3.5)
--- NOTE | 2017-02-01 06:57 | NUR ---
PT IN BED, EYES CLOSED WITH LIGHTS OFF. PT IN NO APPARENT DISTRESS AT THIS TIME. PT VOICES NO C/O. WILL CONTINUE TO MONITOR.
--- NOTE | 2017-02-01 07:45 | NUR ---
Patient comes from [facility] where she was there for short term rehab. According to Kamila she is not a bed hold so if there are still beds avaiable upon her discharge they will review her clincals for possible return.
[2017-02-01 08:00] VITALS: BP 110/58
[2017-02-01 12:00] VITALS: BP 116/58
--- NOTE | 2017-02-01 13:51 | NUR ---
Kamila from [facility] stated they are unable to take this patient back to their facility. She stated this patients cognition is poor and requires more 1:1. She has fallen numerous times and they have exhausted all of their fall interventions. They feel she would benefit from an Alzheimers facility at this time.
--- NOTE | 2017-02-01 14:48 | NUR ---
PHYSICAL THERAPY PAtient evaluated on 4, full evaluation to follow. Continue with PT as per plan of care with fall, acute debility and frail precaution. From SNF for impaired mobility- will require return to SNF in order to return to home with as prior. PAtient is moderate complexity via chart review, tests and evaluation: 30579. Tank you for this referral. Betty Esquivel,PT
[2017-02-01 16:00] VITALS: BP 95/55
--- NOTE | 2017-02-01 19:22 | NUR ---
PT IN BED, RESTING COMFORTABLY. IV FLUIDS GOING, NO ISSUES WITH IV SITE. PT IS CONFUSED TO PLACE AND TIME BUT ORIENTED TO SELF. KELLY IN TACT AND DRAINING YELLOW, CLEAR URINE. PT VOICES NO C/O AT THIS TIME. WILL CONTINUE TO MONITOR.
[2017-02-01 20:00] VITALS: BP 122/55
[2017-02-02] VITALS: BP 111/48
--- NOTE | 2017-02-02 00:04 | NUR ---
PT UP TO CHAIR, RESTING COMFORTABLY. PT VOICES NO COMPLAINTS AT THIS TIME. PT IS STILL CONFUSED TO PLACE AND TIME BUT ORIENTED TO SELF. WILL CONTINUE TO MONITOR.
--- NOTE | 2017-02-02 02:46 | NUR ---
PT UP TO CHAIR, SITTING AT NURSES STATION FOR CLOSER OBSERVATION. PT IS VERY RESTLESS AND CONFUSED. LAUNCHMAN DOCTOR NOTIFIED. NO NEW ORDERS AT THIS TIME. FLUIDS GOING, IV INTACT AND DRY. KELLY INTACT URINE DRAINING. WILL CONTINUE TO MONITOR.
--- NOTE | 2017-02-02 06:37 | NUR ---
PT UP IN CHAIR, EYES CLOSED, RESTING COMFORTABLY WITH LIGHTS OFF AND TV ON. PT IN NO APPARENT DISTRESS. FLUIDS GOING, IV INTACT, KELLY INTACT. WILL CONTINUE TO MONITOR.
[2017-02-02 07:13] LABS: BASO # 0.1 10*3/uL (0.0-0.1); BASO % 0.7 % (0.0-1.0); HEMATOCRIT 26.3 % (37.0-47.0); HEMOGLOBIN 8.7 g/dl (12.0-16.0); LYMPH # 1.5 10*3/uL (1.3-4.4); LYMPH % 15.6 % (27.0-41.0); MEAN CORPUSCULAR HGB 32.1 pg (27.0-31.0); MEAN CORPUSCULAR HGB CONC 33.1 g/dl (33.0-37.0); MEAN PLATELET VOLUME 9.3 fl (9.6-12.3); MONO # 0.6 10*3/uL (0.1-1.0); MONO % 6.3 % (3.0-9.0); NEUT # 7.4 10*3/uL (2.3-7.9); NEUT % 76.7 % (47.0-73.0); PLATELET COUNT AUTOMATED 256 10*3/uL (130-400); RED BLOOD COUNT 2.71 10*6/uL (4.10-5.10); RED CELL DISTRI WIDTH 16.4 % (0-14.5); WHITE BLOOD COUNT 9.7 10*3/uL (4.8-10.8)
[2017-02-02 07:33] LABS: ALBUMIN 2.5 gm/dl (3.1-4.5); CREATININE 2.14 mg/dL (0.55-1.02); PHOSPHOROUS 2.1 mg/dL (2.5-4.9)
[2017-02-02 08:00] VITALS: BP 93/63
--- NOTE | 2017-02-02 09:45 | NUR ---
PHYSICAL THERAPY Lisy seen this AM 1:1 for her therapy treatment. Pt having acute debility and fall precautions and needing much verbal cueing for transfers sit balance, short gait. Transfer supine/sit MOD A X 1, sitting balance CGA X 1, X 5 min. Sit/stand, standing balance MOD A X 1. Then gait 10' to sit up in her gerichair, tray up, Pt with call light and breakfast in. Pt has a cath and IV Pole JUDAH NOLAN SAMPLE TESTER.
--- NOTE | 2017-02-02 11:45 | NUR ---
SW SPOKE WITH ABOUT PLACEMENT AT A FACILITY THAT HAS A DEMENTIA UNIT. WILL TALK WITH PT'S SISTER ABOUT WHAT FACILITY TO LOOK INTO. SW WILL GIVE A LIST OF FACILITIES THAT TAKE DEMENTIA PTS.
--- NOTE | 2017-02-02 11:55 | NUR ---
Nutritional Support Services Note: Pt is confused. Dx of dehydration, UTI. Protein Calorie Malnutrition. Needs fed q meal with assist. Needs encouraged to eat and drink. Po intake is poor. Regular diet as ordered with Boost po TID. Continue to encourage inake. [place] food preferences. Will follow as needed. No other nutrition intervention needed at this time. Leda Diop
[2017-02-02 12:00] VITALS: BP 135/53
--- NOTE | 2017-02-02 12:15 | NUR ---
SW GAVE A LIST OF FACILTIES THAT TAKE CARE OF DEMENTIA PTS OR HAVE A DEMENTIA UNIT.
--- NOTE | 2017-02-02 12:47 | NUR ---
PHYSICAL THERAPY Lisy seen this PM 1:1 for her therapy, family present. Pt was up in her gerichair. With verbal cueing to push off from her chair, sit/stand and working on standing balance X 3, with two sitting rest and MOD SANDING MACHINE TENDER X 1, with much cueing for her standing balance and could stand at times with MIN SANDING MACHINE TENDER X 1, but needing verbal cues to lean forward to hold her balance. Pt back up in her gerichair, tray up, body alarm on and lunch coming in family going to stay. JUDAH NOLAN TEXTILES SALES REPRESENTATIVE.
[2017-02-02 16:00] VITALS: BP 128/46
--- NOTE | 2017-02-02 19:45 | NUR ---
RESTING IN BED WITH EYES CLOSED AND SHEETS OVER HER HEAD. DISORIENTED TO PLACE AND TIME. HEP LOCK INTACT TO RAN AND INFUSING 1/2 NS @80CC/HR. LUNGS CLEAR BILATERALLY. NO EDEMA NOTED.
[2017-02-02 20:00] VITALS: BP 110/40; BP 139/52
--- NOTE | 2017-02-02 22:00 | NUR ---
ATTEMPTED TO GIVE REMERON PO. SHE SPIT PILL OUT MULTIPLE TIMES. FINALLY SWALLOWED PILL AFTER MULTIPLE ATTEMPTS.
[2017-02-03] VITALS: BP 134/56
--- NOTE | 2017-02-03 | NUR ---
ATTEMPTNG TO GET OUT OF BED OVER SIDE RAILS. REORIENTED TO ROOM AND SURROUNDINGS AND LAYED BACK DOWN IN BED ON RIGHT SIDE.
[2017-02-03 06:13] LABS: BASO # 0.1 10*3/uL (0.0-0.1); BASO % 0.7 % (0.0-1.0); HEMATOCRIT 24.2 % (37.0-47.0); HEMOGLOBIN 7.8 g/dl (12.0-16.0); LYMPH # 2.2 10*3/uL (1.3-4.4); LYMPH % 24.2 % (27.0-41.0); MEAN CELL VOLUME 98.4 fl (81.0-99.0); MEAN CORPUSCULAR HGB 31.7 pg (27.0-31.0); MEAN CORPUSCULAR HGB CONC 32.2 g/dl (33.0-37.0); MONO # 0.5 10*3/uL (0.1-1.0); MONO % 5.9 % (3.0-9.0); NEUT # 6.1 10*3/uL (2.3-7.9); NEUT % 68.6 % (47.0-73.0); PLATELET COUNT AUTOMATED 235 10*3/uL (130-400); RED BLOOD COUNT 2.46 10*6/uL (4.10-5.10); RED CELL DISTRI WIDTH 16.6 % (0-14.5); WHITE BLOOD COUNT 8.9 10*3/uL (4.8-10.8)
--- NOTE | 2017-02-03 06:29 | NUR ---
INTO ROOM. KELLY LAYING ON FLOOR WITH BALLOON INFLATED.
[2017-02-03 06:30] LABS: CREATININE 1.42 mg/dL (0.55-1.02); POTASSIUM 4.5 mmol/L (3.5-5.1)
--- NOTE | 2017-02-03 06:55 | NUR ---
IV PULLED OUT IN RIGHT ARM. CONFUSED. PLACED IN CHAIR.
--- NOTE | 2017-02-03 07:30 | NUR ---
PT PLACE IN [place] CHAIR AFTER PT FOUND IN DOORWAY OF ROOM. PT RIPPED IV OUT. PT YELLING OUT AND BANGING ON [place]-CHAIR. 0741 ATIVAN GIVEN. PT STILL AGITATATED. AT 0850 PT WAS FOUND ON FLOOR ON COCCYX SCOOTING ON FLOOR. PLACED BACK IN BED. AT 0807 IM HALDOL GIVEN. 1-1 SITTER OBTAINED. WILL MONITOR.
[2017-02-03 08:00] VITALS: BP 133/47
--- NOTE | 2017-02-03 09:03 | NUR ---
PT RESTING IN BED WITH EYES CLOSED. RESP EASY AND REGULAR. BED ALARM IN [id number]. SITTER AT BEDSIDE. WILL MONITOR.
--- NOTE | 2017-02-03 10:30 | NUR ---
RESTING IN BED WITH EYES CLOSED. RESP EASY AND REGULAR. BED IN LOCKED POSITION, CALL LIGHT IN REACH. SITTER AT BEDSIDE. WILL MONITOR.
[2017-02-03 12:00] VITALS: BP 157/59
--- NOTE | 2017-02-03 12:26 | NUR ---
PHYSICAL THERAPY Patient was unable to participate in therapy this date. Patient attendant present in room 1:1 and informed me that patient is very agitated today and just fell asleep after recieving medication. Vaishali Hare, PECAN SHELLER
[2017-02-03 16:00] VITALS: BP 114/48
[2017-02-03 20:00] VITALS: BP 143/54
[2017-02-04] VITALS: BP 141/62
[2017-02-04 05:56] LABS: BASO # 0.1 10*3/uL (0.0-0.1); BASO % 0.9 % (0.0-1.0); HEMATOCRIT 26.2 % (37.0-47.0); HEMOGLOBIN 8.6 g/dl (12.0-16.0); LYMPH # 1.6 10*3/uL (1.3-4.4); LYMPH % 24.8 % (27.0-41.0); MEAN CELL VOLUME 96.3 fl (81.0-99.0); MEAN CORPUSCULAR HGB 31.6 pg (27.0-31.0); MEAN CORPUSCULAR HGB CONC 32.8 g/dl (33.0-37.0); MEAN PLATELET VOLUME 8.8 fl (9.6-12.3); MONO # 0.3 10*3/uL (0.1-1.0); MONO % 5.2 % (3.0-9.0); NEUT # 4.5 10*3/uL (2.3-7.9); NEUT % 68.8 % (47.0-73.0); PLATELET COUNT AUTOMATED 245 10*3/uL (130-400); RED BLOOD COUNT 2.72 10*6/uL (4.10-5.10); RED CELL DISTRI WIDTH 16.9 % (0-14.5); WHITE BLOOD COUNT 6.6 10*3/uL (4.8-10.8)
[2017-02-04 06:20] LABS: CREATININE 1.25 mg/dL (0.55-1.02); POTASSIUM 3.7 mmol/L (3.5-5.1)
[2017-02-04 08:00] VITALS: BP 104/63
[2017-02-04 12:00] VITALS: BP 125/53
[2017-02-04 16:00] VITALS: BP 106/85
[2017-02-04 20:00] VITALS: BP 133/55
--- NOTE | 2017-02-04 22:33 | NUR ---
PRN RESTORIL GIVEN TO HELP PT REST.
--- NOTE | 2017-02-04 23:33 | NUR ---
PRN RESTORIL EFFECTIVE, PT RESTING COMFORTABLY.
[2017-02-05] VITALS: BP 144/64
[2017-02-05 06:52] LABS: BASO # 0.1 10*3/uL (0.0-0.1); BASO % 1.1 % (0.0-1.0); HEMATOCRIT 24.6 % (37.0-47.0); HEMOGLOBIN 8.2 g/dl (12.0-16.0); LYMPH # 1.6 10*3/uL (1.3-4.4); LYMPH % 25.2 % (27.0-41.0); MEAN CELL VOLUME 96.5 fl (81.0-99.0); MEAN CORPUSCULAR HGB 32.2 pg (27.0-31.0); MEAN CORPUSCULAR HGB CONC 33.3 g/dl (33.0-37.0); MEAN PLATELET VOLUME 8.4 fl (9.6-12.3); MONO # 0.4 10*3/uL (0.1-1.0); MONO % 5.8 % (3.0-9.0); NEUT # 4.4 10*3/uL (2.3-7.9); NEUT % 67.6 % (47.0-73.0); PLATELET COUNT AUTOMATED 199 10*3/uL (130-400); RED BLOOD COUNT 2.55 10*6/uL (4.10-5.10); RED CELL DISTRI WIDTH 16.9 % (0-14.5); WHITE BLOOD COUNT 6.4 10*3/uL (4.8-10.8)
[2017-02-05 07:28] LABS: CREATININE 1.15 mg/dL (0.55-1.02); POTASSIUM 3.8 mmol/L (3.5-5.1)
[2017-02-05 08:00] VITALS: BP 134/48
--- NOTE | 2017-02-05 10:23 | NUR ---
PHYSICAL THERAPY Mrs Trujillo was seen this AM 1:1, for her therapy session. Pt has 1 on 1 with her aid in the room at all times, very confused. Pt did transfer supine/sit with cueing and MIN A X 1, sitting balance CG X 1. Sit/stand and standing balance MOD A X 1. Gait just 27' X 1, with wheeled walker with much verbal cueing for walker, turn safety which she needed. I dont thing she would have found her way back to bed. Pt back supine, bed alarm on aid going to stay. JUDAH NOLAN GEOGRAPHY DEPARTMENT CHAIR.
[2017-02-05 12:00] VITALS: BP 119/47
--- NOTE | 2017-02-05 13:20 | NUR ---
Met with about discharge plans. He stated he does not want her in a [facility] unit/snf. He will take her home and has help arranged to care for her. He would also like home health for nurse and PT. He stated he will find the name of the home health company they used before and let me know.
--- NOTE | 2017-02-05 13:35 | NUR ---
DR. JAVIER'S OFFICE NOTIFIED OF CONSULT.
--- NOTE | 2017-02-05 13:58 | NUR ---
PHYSICAL THERAPY Pt seen this PM 1:1 for her therapy gait and did better then her morning gait. Transfer supine/sit MIN A X 1, sitting balance CG X 1, sit/stand MIN A X 1. Then gait with wheeled walker 44' X 1, MOD MANUFACTURERS SERVICE REPRESENTATIVE X 1, and verbal cueing for gait safety and walker, sister present and said how much better Lisy is doing. Pt up in her gerichair, johnson up. JUDAH NOLAN SHADER AND TONER.
[2017-02-05 16:00] VITALS: BP 123/48
--- NOTE | 2017-02-05 18:38 | NUR ---
ATIVAN GIVEN FOR S/S AGITATION. WILL MONITOR.
--- NOTE | 2017-02-05 19:41 | NUR ---
PT BODY ALARM GOING OFF. WENT INTO ROOM, PT FOUND ON FLOOR IN FRONT OF CHAIR. PT ASSISTED BACK TO CHAIR. NO COMPLAINTS OF PAIN. VITAL SIGNS OBTAINED AND STABLE. CALLED AND MADE DR WEINER AWARE. HE STATES HE IS GOING TO RE-ORDER PT 1:1 SITTER AND SOME IMAGING. CALLED AND MADE MASTER SHIP AWARE. CALLED AND SPOKE TO PT , MCKENNA.
[2017-02-05 20:00] VITALS: BP 151/54
[2017-02-06] VITALS: BP 175/64
[2017-02-06 00:15] VITALS: BP 150/78
--- NOTE | 2017-02-06 02:00 | NUR ---
SLEEPING. RESP EASY AND NONLABORED ON ROOM AIR. NO DISTRESS NOTED. 1:1 SITTER MAINTAINED. BED ALARM ON. CALL LIGHT IN REACH. WILL CONTINUE TO MONITOR.
[2017-02-06 07:22] LABS: BASO % 0.6 % (0.0-1.0); HEMATOCRIT 24.7 % (37.0-47.0); HEMOGLOBIN 8.1 g/dl (12.0-16.0); LYMPH # 1.9 10*3/uL (1.3-4.4); LYMPH % 29.2 % (27.0-41.0); MEAN CELL VOLUME 95.7 fl (81.0-99.0); MEAN CORPUSCULAR HGB 31.4 pg (27.0-31.0); MEAN CORPUSCULAR HGB CONC 32.8 g/dl (33.0-37.0); MEAN PLATELET VOLUME 8.5 fl (9.6-12.3); MONO # 0.5 10*3/uL (0.1-1.0); NEUT # 4.1 10*3/uL (2.3-7.9); NEUT % 62.9 % (47.0-73.0); PLATELET COUNT AUTOMATED 209 10*3/uL (130-400); RED BLOOD COUNT 2.58 10*6/uL (4.10-5.10); WHITE BLOOD COUNT 6.5 10*3/uL (4.8-10.8)
--- NOTE | 2017-02-06 07:30 | NUR ---
PT RESTING IN BED W/EYES CLOSED. 1:1 AT BEDSIDE. VSS.
[2017-02-06 07:34] LABS: CREATININE 1.08 mg/dL (0.55-1.02); POTASSIUM 3.9 mmol/L (3.5-5.1)
--- NOTE | 2017-02-06 07:38 | NUR ---
Kamila from [facility] contacted stating to fax patients updates for review. they spoke with patients and are going to allow patient to return. Updates faxed to [facility].
[2017-02-06 07:40] VITALS: BP 140/78
--- NOTE | 2017-02-06 08:00 | NUR ---
ASSESSMENT COMPLETED, NO SIGN OF SOB, NO SIGN OF DISCOMFORT OR PAIN. PATIENT SLEEPING DEEPLY ON RIGHT SIDE. NOT EASILY AROUSED, CONFUSED, UNABLE TO UNDERSTAND INSTRUCTIONS. HARRIS JOHNCC
--- NOTE | 2017-02-06 08:01 | NUR ---
PHYSICAL THERAPY Case discused with Dr. Alcantar, patient with greater trochanteric fracture, proceed with WBAT. Orders received as well. Staff informed. Thank you for this referral. Betty Esquivel,PT
[2017-02-06] MEDS ORDERED: FLUCONAZOLE100 MG PO (09:51)
--- NOTE | 2017-02-06 09:53 | NUR ---
PHYSICAL THERAPY Lisy seen this AM 1:1 for her therapy session. Pt is a greater trochanteric fracture with WBAT and doing well with this. Transfer supine/sit CGA X 1, sitting balance supervision X 1, sit/stand, standing balance MOD A X 1. Then gait with wheeled walker total 65' X 1, verbal cueing for gait, walker, turn safety, Pt is confused needing cueing. Pt back supine in bed present no complaints. Pt is still a one on one aid present. JUDAH NOLAN GOVERNMENT SERVICES PROFESSIONAL.
--- NOTE | 2017-02-06 10:00 | NUR ---
PATIENT AWAKE AND ALERT WITH VISITING IN THE ROOM. PATIENT WAS BATHED AND DENTURES WERE CLEANED AND APPLIED. HARRIS SALAS
[2017-02-06 11:48] VITALS: BP 102/85
--- NOTE | 2017-02-06 11:51 | NUR ---
PATIENT SITTING UP IN BED, NO SIGNS OF PAIN OR SOB. AIDE IN ROOM FOR 1:1, APPEARS MORE CONFUSED NOW THEN WHEN WAS PRESENT IN ROOM. HARRIS JOHNCC
--- NOTE | 2017-02-06 12:33 | NUR ---
Patient is being discharged to [facility], transportation scheduled for 1PM with [place], nursing and notified.
--- NOTE | 2017-02-06 13:04 | NUR ---
PT LEFT VIA [facility].
--- NOTE | 2017-02-06 13:09 | NUR ---
PHYSICAL THERAPY Back this PM to gait Mrs Trujillo. Transfer supine/sit, sitting balance MIN A X 1. Gait another 65' X 1, with wheeled walker and MOD SIGN HANGER X 1, with verbal cueing for safety, turns. Pt up in her gerichair for her lunch, tray up, aid present. JUDAH NOLAN CHIEF OF INTERNAL MEDICINE.
--- NOTE | 2017-02-06 15:11 | NUR ---
PHYSICAL THERAPY CO-SIGN I approve of the Phyical Therapy notes written above. DARINEL CARBAJAL PT
== END 2017-02-06 13:04 | disposition other institution (70) | DRG 871 ==
LOC: ED 16:17 → EDHOLD 18:20 → 4E 18:20
PROVIDERS: Emergency Medicine; Hospitalist; Internal Medicine; ADMIT Internal Medicine
DX: A41.9 Sepsis, unspecified organism (principal); N17.0 Acute kidney failure with tubular necrosis; G93.41 Metabolic encephalopathy; E44.0 Moderate protein-calorie malnutrition; E87.0 Hyperosmolality and hypernatremia; N39.0 Urinary tract infection, site not specified; Z68.1 Body mass index [BMI] 19.9 or less, adult; R65.20 Severe sepsis without septic shock; E86.0 Dehydration; E83.41 Hypermagnesemia; D64.9 Anemia, unspecified; R62.7 Adult failure to thrive; R74.8 Abnormal levels of other serum enzymes; N18.3 Chronic kidney disease, stage 3 (moderate); Z87.81 Personal history of (healed) traumatic fracture; Z91.81 History of falling; Z90.49 Acquired absence of other specified parts of digestive tract; Z79.01 Long term (current) use of anticoagulants; Z79.82 Long term (current) use of aspirin; Z79.899 Other long term (current) drug therapy; Z84.2 Family history of other diseases of the genitourinary system; Z83.3 Family history of diabetes mellitus